=== PATIENT | female | born 1980 | race Caucasian/White ===

== ENCOUNTER → 2018-09-25 08:19 | Outpatient (CLI) | payer OTHER, SELFPAY ==
--- NOTE | 2018-09-25 08:30 | US_ITS ---
STUDY: ABDOMINAL ULTRASOUND - RIGHT UPPER QUADRANT REASON FOR VISIT: Female, 38 years old. Elevated liver function tests. TECHNIQUE: Ultrasound evaluation of the right upper quadrant was performed with real-time and static wright-scale imaging. TECHNICAL QUALITY: Adequate. COMPARISON: None. FINDINGS: Liver: The liver measures 16.6 cm. There is normal echogenicity of the liver. The bile ducts are within normal limits. There is hepatic color flow. The direction of portal flow is hepatopetal. There is no demonstrated mass lesion. Gallbladder: Normal distended gallbladder. The gallbladder wall measures 2.7 mm. There is a negative sonographic Chery's sign. There is no pericholecystic fluid. There are no gallstones. Common Bile Duct (C.B.D.): The common bile duct measures 3.7 mm. Pancreas: Normal size of the head, body and tail of the pancreas. There is normal echogenicity of the pancreas. There is no demonstrated pancreatic mass or cyst. Right Kidney: Normal size of the right kidney. The right kidney measures 11.7 cm x 4.7 cm x 4.5 cm. Normal renal cortex. The right cortex measures 2.0 cm. There is no demonstrated renal mass or cyst. There is no right hydronephrosis. US/Liver IMPRESSION: Normal right upper quadrant ultrasound examination. Electronically Signed: Cruz Hu MD at 14:52 EST Tel [phone], Service support ,
--- NOTE | 2018-09-25 09:00 | ECHOD_ITS ---
Reason For Study: ABN EKG Procedure This was a 2D Doppler, Color Flow transthoracic echocardiogram. The exam was of adequate technical quality. Exam performed in department. Left Ventricle Normal LV size. Left ventricular systolic function is normal. The estimated ejection fraction is 55 %. No evidence for diastolic dysfunction. No regional wall motion abnormalities noted. Right Ventricle Normal RV size. Normal systolic function. Atria Normal left atrium. Normal right atrium. Hypermobile atrial septum. No doppler evidence for ASD. Mitral Valve There is no mitral annular calcification. Mild diffuse mitral valve thickening. Trivial mitral valve insufficiency. Tricuspid Valve Normal tricuspid valve. Mild to moderate (1-2+) tricuspid valve insufficiency. Right ventricular systolic pressure estimated to be 22 mmHg. Aortic Valve Trisinus/trileaflet aortic valve. Mild diffuse aortic valve thickening. Pulmonic Valve The pulmonic valve is not well visualized. Great Vessels Normal sized aortic root. Pericardium/Pleural No pericardial effusion. MMode/2D Measurements & Calculations LVIDd: 4.9 cm IVSd: 0.80 cm Ao root diam: 3.3 cm LVIDs: 3.3 cm LVPWd: 0.82 cm RVDd: 4.3 cm FS: 31.6 % LAV(MOD-bp): 46.3 ml LVAd ap4: 32.2 cm2 SV(MOD-sp4): 58.4 ml LAV(MOD-bp) Indexed: 24.2 ml/m2 EDV(MOD-sp4): 101.7 ml LAV(MOD-sp2): 46.8 ml EDV(sp4-el): 106.2 ml LAV(MOD-sp4): 43.1 ml LVAs ap4: 18.6 cm2 ESV(MOD-sp4): 43.3 ml ESV(sp4-el): 44.5 ml EF(MOD-sp4): 57.4 % EF(sp4-el): 58.1 % SV(sp4-el): 61.7 ml LA A4 area: 17.4 cm2 LA dimension(2D): 3.2 cm RA A4 area: 16.2 cm2 Time Measurements MV dec time: 0.32 sec Doppler Measurements & Calculations MV E max nicholas: 52.2 cm/sec Lat Peak E' Nicholas: 10.7 cm/sec Med Peak E' Nicholas: 8.5 cm/sec MV A max nicholas: 38.9 cm/sec E/E' lat: 4.9 E/E' med: 6.2 MV E/A: 1.3 Ao V2 max: 122.0 cm/sec LV V1 max: 91.8 cm/sec PA V2 max: 88.4 cm/sec Ao max P.0 mmHg LV V1 max P.4 mmHg TR max nicholas: 214.3 cm/sec TR max P.5 mmHg Interpretation Summary Left ventricular systolic function is normal. The estimated ejection fraction is 55 %. Mild diffuse mitral valve thickening. Trivial mitral valve insufficiency. Mild to moderate (1-2+) tricuspid valve insufficiency. Mild diffuse aortic valve thickening. Right ventricular systolic pressure estimated to be 22 mmHg. No evidence for diastolic dysfunction. Ordering Physician: Andi Blake Referring Physician: ANDI BLAKE Performed By: Carla Rouse, RDCS, RVT
--- OUTSIDE RECORDS SUMMARY | 2018-11-11 06:25 | XMS RPT_ITS | Continuity of Care Document ---
:1980 Author Organization [facility] Address [facility]7 [facility] [address] [place] [address] Phone Care Team Providers Name Role Phone Diego FARHEENVivien Unavailable Gisselle Short Unavailable Unavailable Unavailable Unavailable Problems Name Dates Details Abdominal pain, acute, right upper quadrant (789.01) Comments: ? 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) Comments: CT from [facility] shows 8mm left sided calculi, but has pain on rt Status: Active Cough (R05, 786.2) Status: Active Elevated liver enzymes (R74.8, 790.5) Status: Active Fatigue (R53.83, 780.79) Status: Active Flu-like symptoms (R68.89, 780.99) Status: Active Influenza vaccination declined (Renamed from Refused influenza vaccine) (Z28.21, V64.06) Status: Active Lack of sexual desire (F52.0, 302.71) Status: Active Nonsmoker (Z78.9, V49.89) Status: Active Other specified conditions associated with female genital organs and menstrual cycle (N94.89, 629.89) Status: Active Shingles (B02.9, 053.9) Comments: calls and reports she was seen at a [facility] and started on antiviral. Aware to cover lesions and is spread via touch (not airborne) and aware to come to office if not improving. Status: Active Sinusitis, acute (J01.90, 461.9) Status: Active Sleep disorder (G47.9, 780.50) Comments: ? narcolepsy or other Status: Active SOB (shortness of breath) on exertion (R06.02, 786.05) Status: Active Vitamin D deficiency (E55.9, 268.9) Status: Active Medications Name Dates Details AUGMENTIN, 875-125MG (Oral Tablet) 1 (one) Tablet bid for 14 days Quantity: 28 {Tablet} Refills: 0 Ordered:04-Jan-2016 Diego WIRE ROPE SLING MAKER, Vivien Castellanos CNP, Vivien Mcneill Start : 04-Jan-2016 End : 18-Jan-2016 Inactive AVELOX, 400MG (Oral Tablet) 1 Tablet daily for 10 days Refills: 0 Ordered:03-Jun-2013 Diego WIRE ROPE SLING MAKER, Vivien Castellanos WIRE ROPE SLING MAKER, Vivien Mcneill Start : 24-May-2013 End : 03-Jun-2013 Inactive LEVAQUIN, 500MG (Oral Tablet) 1 (one) Tablet daily for 10 days Quantity: 10 {Tablet} Refills: 0 Ordered:25-Nov-2013 Diego ZHONG Vivien Castellanos CNP, Vivien Mcneill Start : 25-Nov-2013 End : 05-Dec-2013 Inactive LINZESS, 145 MCG (LINACLOTIDE) CAPSULES, 145 MCGMCG (Oral Capsule) (Free Text) 1 Capsule qd 1/2 hour prior to eating and eat lowfat for 0 days Quantity: 30 {Capsule} Refills: 0 Ordered:24-May-2013 Ava Orlando LPN Start : 16-Apr-2013 End : 24-May-2013 Inactive AMITIZA, 24MCG (Oral Capsule) 1 Capsule daily for 0 days Quantity: 30 {Capsule} Refills: 0 Ordered:09-Sep-2013 Fast DO, Ivelisse A Start : 09-Sep-2013 End : 09-Sep-2013 Discontinued Comments:per Gi doctor Cheratussin AC 100-10 MG/5ML Oral Solution 1-2 Teaspoon qhs prn for 0 days Quantity: 6 {Ounce} Refills: 0 Ordered:31-Aug-2018 Gisselle Short Start : 04-Jan-2016 End : 31-Aug-2018 Discontinued LACTULOSE, 20GM/30ML (Oral Solution) 1 Solution Solution 30mg tid prn constipation for 0 days Quantity: 500 ml Refills: 1 Ordered:04-Jan-2016 Slarb HYDROGEOLOGIST, Klaudia Start : 09-Sep-2013 End : 04-Jan-2016 Discontinued LINZESS, 290 MCG (LINACLOTIDE) CAPSULES, 290 MCGMCG (Oral Capsule) (Free Text) 1 Capsule qd for 0 days Quantity: 30 {Capsule} Refills: 3 Ordered:09-Sep-2013 Fast , Ivelisse A Start : 09-Sep-2013 End : 09-Sep-2013 Discontinued MULTIVITAMIN (Oral Liquid) 1 qd End : 04-Jan-2016 Discontinued ProAir HFA 108 (90 Base) MCG/ACT Inhalation Aerosol Solution 2 (two) Aerosol Soln puffs qid prn for 0 days Quantity: 1 {Inhaler} Refills: 1 Ordered:31-Aug-2018 Gisselle Short Start : 04-Jan-2016 End : 31-Aug-2018 Discontinued SPRINTEC 28, 0.25-35MG-MCG (Oral Tablet) qd (0.25-35 MG-MCG) End : 14-May-2014 Discontinued Allergies and Adverse Reactions Name Dates Details No Known Allergies (Allergy) Onset: 16-Apr-2013 Status: Active No Known Drug Allergies (Allergy) Onset: 16-Apr-2013 Status: Active Past Medical History Name Dates Details Constipation (K59.00, 564.00) Status: Resolved as of 14-May-2014 Cough (R05, 786.2) Status: Resolved as of 14-May-2014 Fever (R50.9, 780.60) Status: Resolved as of 14-May-2014 No Known Problems 09-Sep-2013 Status: Inactive Pneumonia (J18.9, 486) Status: Resolved as of 14-May-2014 Family History Unknown Family Member Name Dates Details Brother 2 Comments: 2 brothers living and healthy Status: Active Father Comments: living and has high chol Status: Active Mother Comments: living and healthy Status: Active Social History Name Dates Details Exercise History: Exercises regularly. Comments: 6 days a week Status: Active No Caffeine Use Status: Active No Drug Use Status: Active Non Drinker/No Alcohol Use Status: Active Pets/Animals: Dog. Status: Active Tobacco use: Never smoker. Status: Active Smoking Status Name Dates Details Never smoker Vital Signs Date Test Result Details :59 Temperature 97.9 f Comments: Method: Temporal Pulse 75 /min Comments: Pattern: Regular Respiration Rate 16 /min Comments: Pattern: Unlabored O2 SAT 96 % Comments: Room air BP Systolic 112 mm[Hg] Comments: Patient Position: Sitting; Cuff Location: Left Arm; Cuff Size: Standard BP Diastolic 62 mm[Hg] Comments: Patient Position: Sitting; Cuff Location: Left Arm; Cuff Size: Standard Weight 158.3125 lb Height 69.75 in Body Mass Index Calculated 22.88 kg/m2 Body Surface Area Calculated 1.89 m2 :32 Temperature 98.2 f Comments: Method: Temporal Pulse 68 /min Comments: Pattern: Regular Respiration Rate 16 /min Comments: Pattern: Unlabored O2 SAT 95 % Comments: Room air BP Systolic 108 mm[Hg] Comments: Patient Position: Sitting; Cuff Location: Left Arm; Cuff Size: Standard BP Diastolic 60 mm[Hg] Comments: Patient Position: Sitting; Cuff Location: Left Arm; Cuff Size: Standard Weight 158.3125 lb Height 69.75 in Body Mass Index Calculated 22.88 kg/m2 Body Surface Area Calculated 1.89 m2 :06 Temperature 98 f Pulse 84 /min Comments: Pattern: Regular Respiration Rate 18 /min Comments: Pattern: Unlabored O2 SAT 99 % Comments: Room air BP Systolic 102 mm[Hg] Comments: Patient Position: Sitting; Cuff Location: Left Arm; Cuff Size: Standard BP Diastolic 62 mm[Hg] Comments: Patient Position: Sitting; Cuff Location: Left Arm; Cuff Size: Standard Weight 156 lb Height 69.75 in Body Mass Index Calculated 22.54 kg/m2 Body Surface Area Calculated 1.87 m2 :11 Temperature 97.3 f Pulse 64 /min Comments: Pattern: Regular Respiration Rate 16 /min Comments: Pattern: Unlabored BP Systolic 90 mm[Hg] Comments: Patient Position: Sitting; Cuff Location: Left Arm; Cuff Size: Large BP Diastolic 64 mm[Hg] Comments: Patient Position: Sitting; Cuff Location: Left Arm; Cuff Size: Large Weight 154 lb Height 69.75 in Body Mass Index Calculated 22.26 kg/m2 Body Surface Area Calculated 1.86 m2 :01 Temperature 101.8 f Comments: Method: Oral Pulse 110 /min Comments: Pattern: Regular Respiration Rate 18 /min O2 SAT 93 % Comments: Room air BP Systolic 110 mm[Hg] Comments: Patient Position: Sitting; Cuff Location: Left Arm; Cuff Size: Standard BP Diastolic 68 mm[Hg] Comments: Patient Position: Sitting; Cuff Location: Left Arm; Cuff Size: Standard Weight 157 lb Height 69.75 in Body Mass Index Calculated 22.69 kg/m2 Body Surface Area Calculated 1.88 m2 :12 Temperature 97.9 f Pulse 80 /min Comments: Pattern: Regular Respiration Rate 16 /min Comments: Pattern: Unlabored BP Systolic 102 mm[Hg] Comments: Patient Position: Sitting; Cuff Location: Left Arm; Cuff Size: Standard BP Diastolic 68 mm[Hg] Comments: Patient Position: Sitting; Cuff Location: Left Arm; Cuff Size: Standard Weight 157 lb Height 69.75 in Body Mass Index Calculated 22.69 kg/m2 Body Surface Area Calculated 1.88 m2 :13 Temperature 97.6 f Comments: Method: Temporal Pulse 74 /min Comments: Pattern: Regular Respiration Rate 16 /min Comments: Pattern: Unlabored O2 SAT 99 % Comments: Room air BP Systolic 120 mm[Hg] Comments: Patient Position: Sitting; Cuff Location: Left Arm; Cuff Size: Standard BP Diastolic 70 mm[Hg] Comments: Patient Position: Sitting; Cuff Location: Left Arm; Cuff Size: Standard Weight 146 lb :59 Temperature 97.8 f Comments: Method: Oral Pulse 76 /min Comments: Pattern: Regular Respiration Rate 18 /min O2 SAT 98 % Comments: Room air BP Systolic 100 mm[Hg] Comments: Patient Position: Sitting; Cuff Location: Left Arm; Cuff Size: Standard BP Diastolic 66 mm[Hg] Comments: Patient Position: Sitting; Cuff Location: Left Arm; Cuff Size: Standard Weight 146 lb :00 Pulse 64 /min Comments: Pattern: Regular Respiration Rate 16 /min Comments: Pattern: Unlabored O2 SAT 98 % Comments: Room air BP Systolic 96 mm[Hg] Comments: Patient Position: Sitting; Cuff Location: Left Arm; Cuff Size: Standard BP Diastolic 60 mm[Hg] Comments: Patient Position: Sitting; Cuff Location: Left Arm; Cuff Size: Standard Weight 146 lb Results Date Description Value Details 00-Hvr-400320:22 CALCIFIDIOL (51830) VIT D 25 Comments: PATIENT NOT FASTINGPERFORMED BY: [facility] Mwpsio6345 [facility] [place] [id number] Vitamin D, 25-Hydroxy 23.8 ng/mL (Abnormal) Range: 30.0-100.0 Comments: Vitamin D deficiency has been defined by the Media ofMad[place] Healthcine and an Endocrine Society practice guideline as alevel of serum 25-OH vitamin D less than 20 ng/mL (1,2).The Endocrine Society went on to further define vitamin Dinsufficiency as a level between 21 and 29 ng/mL (2).1. IOM (Media of Medicine). 2010. Dietary reference intakes for calcium and D. [place]: The National AcademRoad [employer] Press.2. Teo MF, Michelle MIRANDA, Michela CRUZ, et al. Evaluation, treatment, and prevention of vitamin D deficiency: an Endocrine Society clinical practice guideline. JCEM. 2010; 96(7):1911-30. 09-Pye-455734:22 Folate (38475) Comments: PATIENT NOT FASTINGPERFORMED BY: [facility] Evimii3202 [facility] [place] [id number] Folate (Folic Acid), Serum >20.0 ng/mL (Normal) Comments: A serum folate concentration of less than 3.1 ng/mL isconsidered to represent clinical deficiency. 45-Nvw-583339:22 VITAMIN B-12 (CYANOCOBALAMIN) Comments: PATIENT NOT FASTINGPERFORMED BY: [facility] Anranh6508 [facility] [place] [id number] (03885) Vitamin B12 842 pg/mL (Normal) Range: 232-1245 28-Bpu-403505:22 TSH (84338) Comments: PATIENT NOT FASTINGPERFORMED BY: [facility] Hvnnqg5860 [facility] [place] [id number] TSH 1.030 {uIU/mL} (Normal) Range: 0.450-4.500 29-Xvv-597130:22 SED RATE ERYTHROCYTE (05205) Comments: PATIENT NOT FASTINGPERFORMED BY: [facility] Gwmovn9906 [facility] [id number] Sedimentation Rate-Westergren 2 mm/h (Normal) Range: 0-32 86-Cil-427053:22 RHEUMATOID FACTOR-QUANT (11190) Comments: PATIENT NOT FASTINGPERFORMED BY: [facility] [id number] RA Latex Turbid. <10.0 {IU/mL} (Normal) Range: 0.0-13.9 83-Wul-516322:22 METABOLIC PANEL, COMPREHENSIVE Comments: PATIENT NOT FASTINGPERFORMED BY: [facility] [id number] (51177) ALT (SGPT) 36 [iU]/L (Abnormal) Range: 0-32 AST (SGOT) 45 [iU]/L (Abnormal) Range: 0-40 Alkaline Phosphatase 66 [iU]/L (Normal) Range: 39-117 Bilirubin, Total 0.3 mg/dL (Normal) Range: 0.0-1.2 A/G Ratio 2.1 (Normal) Range: 1.2-2.2 Globulin, Total 2.4 g/dL (Normal) Range: 1.5-4.5 Albumin 5.0 g/dL (Normal) Range: 3.5-5.5 Protein, Total 7.4 g/dL (Normal) Range: 6.0-8.5 Calcium 9.9 mg/dL (Normal) Range: 8.7-10.2 Carbon Dioxide, Total 22 mmol/L (Normal) Range: 20-29 Chloride 100 mmol/L (Normal) Range: 96-106 Potassium 4.4 mmol/L (Normal) Range: 3.5-5.2 Sodium 139 mmol/L (Normal) Range: 134-144 BUN/Creatinine Ratio 25 (Abnormal) Range: 9-23 eGFR If Africn Am 88 mL/min/1.73 (Normal) eGFR If NonAfricn Am 76 mL/min/1.73 (Normal) Creatinine 0.95 mg/dL (Normal) Range: 0.57-1.00 BUN 24 mg/dL (Abnormal) Range: 6-20 Glucose 83 mg/dL (Normal) Range: 65-99 14-Iur-034589:22 C-REACTIVE PROTEIN (78722) Comments: PATIENT NOT FASTINGPERFORMED BY: [facility] [id number] C-Reactive Protein, Quant <0.3 mg/L (Normal) Range: 0.0-4.9 77-Ruz-493912:22 CBC (AUTO) (25051) Comments: PATIENT NOT FASTINGPERFORMED BY: [place] [id number] [facility] [id number] Platelets 252 {x10E3/uL} (Normal) Range: 150-379 RDW 12.5 % (Normal) Range: 12.3-15.4 MCHC 33.0 g/dL (Normal) Range: 31.5-35.7 MCH 30.7 pg (Normal) Range: 26.6-33.0 MCV 93 fL (Normal) Range: 79-97 Hematocrit 43.9 % (Normal) Range: 34.0-46.6 Hemoglobin 14.5 g/dL (Normal) Range: 11.1-15.9 RBC 4.73 {x10E6/uL} (Normal) Range: 3.77-5.28 WBC 7.7 {x10E3/uL} (Normal) Range: 3.4-10.8 22-Dkc-246158:22 HARMONY (ANTINUCLEAR ANTIBODY) Comments: PATIENT NOT FASTINGPERFORMED BY: [place] [id number] [facility] [id number] (50837) HARMONY Direct Negative (Normal) 05-Lvc-141272:00 Influenza A&B Viral Comments: PATIENT NOT FASTINGPERFORMED BY: [address] [id number] Information: SRC:NASALS [id number] Culture (33050) Viral Culture,Rapid,Influenza FLUABN (Normal) Comments: Negative:No Influenza A or B detected. 73-Feo-10428:06 Rapid Flu (25559 x 2) Influenza A Ag Negative a/b (Normal) 81-Lcq-82950:08 Microscopic Examination Comments: PATIENT WAS FASTINGPERFORMED BY: [place] 0158670 [facility] [id number] BY: [place] [id number] Bacteria Few (Normal) Mucus Threads Present (Normal) Epithelial Cells (non renal) 0-10 {/hpf} (Normal) Range: 0 - 10 RBC 0-2 {/hpf} (Normal) Range: 0 - 2 WBC 0-5 {/hpf} (Normal) Range: 0 - 5 :08 T4, FREE (THYROXINE) Comments: PATIENT WAS FASTINGPERFORMED BY: [facility] [id number] BY: [address] [id number] (29158) T4,Free(Direct) 1.23 ng/dL (Normal) Range: 0.82-1.77 :08 T3, FREE (TRIDOTHYRONINE) Comments: PATIENT WAS FASTINGPERFORMED BY: [address] [id number] BY: [place] [id number] (32205) Triiodothyronine,Free,Serum 2.9 pg/mL (Normal) Range: 2.0-4.4 :08 TESTOSTERONE FREE (94459) Comments: PATIENT WAS FASTINGPERFORMED BY: [place] 0477170 [facility] [id number] BY: [address] [id number] Free Testosterone(Direct) 0.2 pg/mL (Normal) Range: 0.0-2.2 :08 PROLACTIN (41531) Comments: PATIENT WAS FASTINGPERFORMED BY: [address] [id number] BY: [address] [id number] Prolactin 5.7 ng/mL (Normal) Range: 4.8-23.3 :08 EBV Panel (18310) Comments: PATIENT WAS FASTINGPERFORMED BY: [facility]6370 [facility] [id number] BY: [address] [id number] Interpretation: [facility] (Normal) Comments: EBV Interpretation Chart . Interpretation EBV-IgM VCA-IgG EBNA-IgG EA(D)-IgG . EBV Seronegative - - - - Early Phase + - - - Acute Primary + + - +or- Infection Convalescence/Past - + + +or- Infection Reactivated +or- + + + Infection + Antibody Present - Antibody Absent EBV Nuclear Antigen Ab, IgG 248.0 U/mL (Abnormal) Range: 0.0-17.9 Comments: Negative <18.0 Equivocal 18.0 - 21.9 Positive >21.9 EBV Ab VCA, IgG >600.0 U/mL (Abnormal) Range: 0.0-17.9 Comments: Negative <18.0 Equivocal 18.0 - 21.9 Positive >21.9 EBV Ab VCA, IgM <36.0 U/mL (Normal) Range: 0.0-35.9 Comments: Negative <36.0 Equivocal 36.0 - 43.9 Positive >43.9 EBV Early Antigen Ab, IgG 52.6 U/mL (Abnormal) Range: 0.0-8.9 Comments: Hepatitis A, Hepatitis C and HIV antibodies may cross-reactwith this assay. Negative < 9.0 Equivoc al 9.0 - 10.9 Positive >10.9 41-Hbq-94188:08 C-REACTIVE PROTEIN (49062) Comments: PATIENT WAS FASTINGPERFORMED BY: [place] 0477170 [facility] [id number] BY: [address] [id number] C-Reactive Protein, Quant 0.4 mg/L (Normal) Range: 0.0-4.9 :08 SED RATE ERYTHROCYTE Comments: PATIENT WAS FASTINGPERFORMED BY: [place] 0477170 [facility] [id number] BY: [address] [id number] (79279) Sedimentation Rate-Westergren 2 mm/h (Normal) Range: 0-32 :08 Vitamin D Hydroxy Comments: PATIENT WAS FASTINGPERFORMED BY: [facility] Oxuish1534 [facility] [id number] BY: Dan[place] d/b/a [employer] [id number] (86058) Vitamin D, 25-Hydroxy 40.2 ng/mL (Normal) Range: 30.0-100.0 Comments: Vitamin D deficiency has been defined by the Media ofMedicine and an Endocrine Society practice guideline as alevel of serum 25-OH vitamin D less than 20 ng/mL (1,2).The Endocrine Society went on to further define vitamin Dinsufficiency as a level between 21 and 29 ng/mL (2).1. IOM (Media of Medicine). 2010. Dietary reference intakes for calcium and D. [place]: The National Academies Press.2. Teo MF, Michelle [place], Michela CRUZ, et al. Evaluation, treatment, and prevention of vitamin D deficiency: an Endocrine Society clinical practice guideline. JCEM. 2010; 96(7):1911-30. :08 VITAMIN B-12 (CYANOCOBALAMIN) Comments: PATIENT WAS FASTINGPERFORMED BY: [facility] Lbuhwq6827 [facility] [id number] BY: [place] d/b/a [employer] [id number] (44692) Vitamin B12 1969 pg/mL (Abnormal) Range: 211-946 :08 URINALYSIS, W/ MICRO Comments: PATIENT WAS FASTINGPERFORMED BY: [facility] Ojihjn0590 [facility] [id number] BY: [place] d/b/a [employer] [id number] (99060) Microscopic Examination See below: (Normal) Comments: Microscopic was indicated and was performed. Nitrite, Urine Negative (Normal) Urobilinogen,Semi-Qn 0.2 mg/dL (Normal) Range: 0.0-1.9 Bilirubin Negative (Normal) Occult Blood Negative (Normal) Ketones Negative (Normal) Glucose Negative (Normal) Protein Negative (Normal) WBC Esterase 1+ (Abnormal) Appearance Clear (Normal) Urine-Color Yellow (Normal) pH 6.5 (Normal) Range: 5.0-7.5 Specific [place] 1.022 (Normal) Range: 1.005-1.030 :08 TSH (14811) Comments: PATIENT WAS FASTINGPERFORMED BY: [place] [id number] [facility] [id number] BY: [place] d/b/a [employer] [id number] TSH 3.670 {uIU/mL} (Normal) Range: 0.450-4.500 :08 CBC WITH MANUAL DIFF Comments: PATIENT WAS FASTINGPERFORMED BY: [place] 0477170 [facility] [id number] BY: [place] d/b/a [employer] [id number] Inf ormation: [id number] (57840) Immature Grans (Abs) 0.0 {x10E3/uL} (Normal) Range: 0.0-0.1 Immature Granulocytes 0 % (Normal) Range: 0-2 Baso (Absolute) 0.0 {x10E3/uL} (Normal) Range: 0.0-0.2 Eos (Absolute) 0.1 {x10E3/uL} (Normal) Range: 0.0-0.4 Monocytes(Absolute) 0.3 {x10E3/uL} (Normal) Range: 0.1-0.9 Lymphs (Absolute) 2.0 {x10E3/uL} (Normal) Range: 0.7-3.1 Neutrophils (Absolute) 2.2 {x10E3/uL} (Normal) Range: 1.4-7.0 Basos 1 % (Normal) Range: 0-3 Eos 1 % (Normal) Range: 0-5 Monocytes 7 % (Normal) Range: 4-12 Lymphs 44 % (Normal) Range: 14-46 Neutrophils 47 % (Normal) Range: 40-74 Platelets 208 {x10E3/uL} (Normal) Range: 150-379 RDW 12.7 % (Normal) Range: 12.3-15.4 MCHC 34.0 g/dL (Normal) Range: 31.5-35.7 MCH 31.1 pg (Normal) Range: 26.6-33.0 MCV 91 fL (Normal) Range: 79-97 Hematocrit 44.7 % (Normal) Range: 34.0-46.6 Hemoglobin 15.2 g/dL (Normal) Range: 11.1-15.9 RBC 4.89 {x10E6/uL} (Normal) Range: 3.77-5.28 WBC 4.6 {x10E3/uL} (Normal) Range: 3.4-10.8 44-Cdn-99468:08 METABOLIC PANEL, Comments: PATIENT WAS FASTINGPERFORMED BY: [facility] Hqinnz1014 [facility] [id number] BY: BN [facility] Fdjwfpqwhg5973 [facility] [id number] COMPREHENSIVE (56749) ALT (SGPT) 57 [iU]/L (Abnormal) Range: 0-32 AST (SGOT) 41 [iU]/L (Abnormal) Range: 0-40 Alkaline Phosphatase, S 54 [iU]/L (Normal) Range: 39-117 Bilirubin, Total 0.5 mg/dL (Normal) Range: 0.0-1.2 A/G Ratio 1.8 (Normal) Range: 1.1-2.5 Globulin, Total 2.5 g/dL (Normal) Range: 1.5-4.5 Albumin, Serum 4.5 g/dL (Normal) Range: 3.5-5.5 Protein, Total, Serum 7.0 g/dL (Normal) Range: 6.0-8.5 Calcium, Serum 9.6 mg/dL (Normal) Range: 8.7-10.2 Carbon Dioxide, Total 25 mmol/L (Normal) Range: 18-29 Chloride, Serum 99 mmol/L (Normal) Range: 97-108 Potassium, Serum 4.7 mmol/L (Normal) Range: 3.5-5.2 Sodium, Serum 142 mmol/L (Normal) Range: 134-144 BUN/Creatinine Ratio 29 (Abnormal) Range: 8-20 eGFR If Africn Am 115 mL/min/1.73 (Normal) eGFR If NonAfricn Am 99 mL/min/1.73 (Normal) Creatinine, Serum 0.78 mg/dL (Normal) Range: 0.57-1.00 BUN 23 mg/dL (Abnormal) Range: 6-20 Glucose, Serum 83 mg/dL (Normal) Range: 65-99 66-Sbx-781502:57 PELVIC (NON ) Radiology Report See Note Comments: PROCEDURE: ULTRASOUND OF THE FEMALE PELVIS - COMPLETE REASON FOR EXAM: Female, 33 years old. LMP: 05/20/13. Pelvic pain TECHNIQUE: Transabdominal and Transvaginal TECHNICAL QUALITY: Adequate. C (Normal) OMPARISON: None. FINDINGS:The uterus is anteverted and just to the right of midline position. Theuterus measures 7.3 x 6.7 x 4.7 cm. Normal uterine cervix. Theend ometrium measures 2.0 mm in thickness, and is hyperechoic. There isnodemonstrated endometrial mass. There is no demonstrated myometrial mass.I.U.D. - No The right ovary is non-visualized. The left ova ry is non-visualized. No suspicious adnexal mass is identified. There is no fluid in the cul-de-sac. The distended urinary bladder had a volume of 902 ml at the time of theexam. IMPRESSION:Neither ovary was visualized due to overlying bowel. Signed:Lucia Saldana M.D.June 06, 2013 at 9:37:54 PM [phone] Signed SN/SN If you are the referring physi flora and would like to consult with theradiologist who provided this interpretation, please contact Lucia Saldana M.D. at . If this radiologist is unavailable, you will bedirected to another r adiologist to assist. If you are a patient with a question regarding this report, pleasecontactyour referring physician directly. Professional Interpretation Provided By: [employer], Phone , These documents contain legally protected and confidential healthinformation intended only for the use of the individual or entity namedabove. If you are not the intended recipient, you are hereby notifiedthatany disclosure, copying, distribution, or other use of these documents isstrictly prohibited. If you have received this information in error,pleasenotify the sender immediatel y and arrange for the return or destructionofthese documents. Dictated on 06/06/132136 by Ritika Saldana AnnTranscribed on 06/06/132138 by ITS IMPORTSign by Ritika Saldana on 06/06/132139 Sign by: Ritika Saldana 01-Brd-79760:00 TRANSVAGINAL NON- Radiology Report See Note Comments: PROCEDURE: ULTRASOUND OF THE FEMALE PELVIS - COMPLETE REASON FOR EXAM: Female, 33 years old. LMP: 05/20/13. Pelvic pain TECHNIQUE: Transabdominal and Transvaginal TECHNICAL QUALITY: Adequate. C (Normal) OMPARISON: None. FINDINGS:The uterus is anteverted and just to the right of midline position. Theuterus measures 7.3 x 6.7 x 4.7 cm. Normal uterine cervix. Theend ometrium measures 2.0 mm in thickness, and is hyperechoic. There isnodemonstrated endometrial mass. There is no demonstrated myometrial mass.I.U.D. - No The right ovary is non-visualized. The left ova ry is non-visualized. No suspicious adnexal mass is identified. There is no fluid in the cul-de-sac. The distended urinary bladder had a volume of 902 ml at the time of theexam. IMPRESSION:Neither ovary was visualized due to overlying bowel. Signed:Lucia Saldana M.D.June 06, 2013 at 9:37:54 PM [phone] Signed SN/SN If you are the referring physi flora and would like to consult with theradiologist who provided this interpretation, please contact Lucia Saldana M.D. at . If this radiologist is unavailable, you will bedirected to another r adiologist to assist. If you are a patient with a question regarding this report, pleasecontactyour referring physician directly. Professional Interpretation Provided By: [employer], Phone [phone], These documents contain legally protected and confidential healthinformation intended only for the use of the individual or entity namedabove. If you are not the intended recipient, you are hereby notifiedthatany disclosure, copying, distribution, or other use of these documents isstrictly prohibited. If you have received this information in error,pleasenotify the sender immediatel y and arrange for the return or destructionofthese documents. Dictated on 06/06/132136 by Ritika Saldana AnnTranscribed on 06/06/132138 by ITS IMPORTSign by Ritika Saldana on 06/06/132139 Sign by: Ritika Saldana Susanna 40-Lwv-[id number]:48 CHEST PA AND LATERAL Radiology Report See Note Comments: STUDY: X-RAY CHEST REASON FOR EXAM: Female, 33 years old. Pneumonia. TECHNIQUE: PA and lateral views of the chest. COMPARISON: None. FINDINGS: Hyp erinflation. (Normal) There is no demonstrated pleural abnormality. Normal size heart. Normal mediastinum and cely. Normal visualizedpulmonary arteries. Normal visualized aortic arch and descendingthoracicaorta. Normal visualized thoracic spine. Normal visualized ribs, clavicles, andshoulders. There is no demonstrated abnormality of the visualized soft tissuestructures of the upper abdomen. IMPRESSION:Hyperinflation. Signed:Cruz Hu M.D.June 04, 2013 at 3:36:49 PM [phone] Signed GP/GP If you are the referring physician and would like to consult with theradiologist who provided this interpretation, please contact Osmani Flores at [phone]. If this radiologist is unavailable, youwill be directed to another radiologist to assist. If you are a patient with a question regarding this report, pleasecontactyour referring physician directly. Professional Interpretation Provided By: [employer], Phone , Thes e documents contain legally protected and confidential healthinformation intended only for the use of the individual or entity namedabove. If you are not the intended recipient, you are hereby notifiedt hatany disclosure, copying, distribution, or other use of these documents isstrictly prohibited. If you have received this information in error,pleasenotify the sender immediately and arrange for the re turn or destructionofthese documents. Dictated on 06/04/131535 by Christina Hu MDranscribed on 06/04/131537 by ITS IMPORTSign by Cruz Hu MD on 06/04/131538 Sign by: Cruz Hu MD 03-Vqw-89551:01 CBCMD ANC 5.9 3/uL (Normal) Range: 2.0-7.7 IG% 0.10 % (Normal) Range: 0.0-0.9 Comments: IG% - Immature Granulocytes (promyelocytes, myelocytes,metamyelocytes) >1.0% indicates that a LEFT SHIFT ispresent. B% 0.7 % (Normal) Range: 0-1 E% 0.8 % (Normal) Range: 0-5 M% 7.3 % (Normal) Range: 0-10 L% 21.8 % (Normal) Range: 19-41 N% 69.3 % (Normal) Range: 47-70 MPV 10.9 fL (Normal) Range: 6.2-12.0 PLT 273 K/mm3 (Normal) Range: 150-450 RDWSD 42.4 fL (Normal) Range: 35.1-43.9 MCHC 33.8 g/dL (Normal) Range: 32-36 RDWCV 12.9 % (Normal) Range: 11.6-14.6 MCH 31.2 pg (Normal) Range: 27.0-32.0 MCV 92.1 fL (Normal) Range: 81-99 HCT 40.8 % (Normal) Range: 37-47 HGB 13.8 g/dL (Normal) Range: 12.0-15.0 RBC 4.43 {M/mm3} (Normal) Range: 4.2-5.4 WBC 8.5 {k/mm3} (Normal) Range: 4.4-11.0 :01 DDIMQ 0.35 {FEUug/mL} (Normal) Range: 0.22-0.48 Comments: NORMAL D-Dimer level indicates no DVT or PE. :01 PREGS tPREGS NEGATIVE {Negative} (Normal) Range: 0-9 Nonpreg 8-Mti-992428:19 CULTURE, SPUTUM ([id number]) Comments: PATIENT NOT FASTINGPERFORMED BY: [facility] Wycans8406 [facility] hospital [id number] Information: SRC:[facility] [id number] Result 1 RRF (Normal) Comments: Routine respiratory mila Lower Respiratory Culture Final report (Normal) :28 Microscopic Examination Comments: PATIENT NOT FASTINGPERFORMED BY: [employer] [facility] [id number] [facility] [place] [id number] Bacteria Few (Normal) Mucus Threads Present (Normal) Epithelial Cells (non renal) 0-10 {/hpf} (Normal) Range: 0 - 10 RBC 0-3 {/hpf} (Normal) Range: 0 - 3 WBC 0-5 {/hpf} (Normal) Range: 0 - 5 :28 Vitamin D Hydroxy (75990) Comments: PATIENT NOT FASTINGPERFORMED BY: [employer] [facility] [id number] [place]opicmarksDublin [place] [id number] Vitamin D, 25-Hydroxy 39.8 ng/mL (Normal) Range: 30.0-100.0 Comments: Vitamin D deficiency has been defined by the Media ofMedicine and an Endocrine Society practice guideline as alevel of serum 25-OH vitamin D less than 20 ng/mL (1,2).The Endocrine Society went on to further define vitamin Dinsufficiency as a level between 21 and 29 ng/mL (2).1. IOM (Media of Medicine). 2010. Dietary reference intakes for calcium and D. [place]: The National Academies Press.2. Teo MF, Michelle MIRANDA, Michela CRUZ, et al. Evaluation, treatment, and prevention of vitamin D deficiency: an Endocrine Society clinical practice guideline. JCEM. 2010; 96(7):1911-30. :28 VITAMIN B-12 (CYANOCOBALAMIN) Comments: PATIENT NOT FASTINGPERFORMED BY: Promon70 [facility] [id number] ([id number]) Vitamin B12 1334 pg/mL (Abnormal) Range: 211-946 :28 EBV Panel (46875) Comments: PATIENT NOT FASTINGPERFORMED BY: Ecinity6370 [facility] [id number] Interpretation: SPRCS (Normal) Comments: EBV Interpretation Chart . Interpretation VCA-IgM EA-IgG VCA-IgG NA-ABS . Susceptible - - - - Acute Infection + +or- +or- - Convalescent Phase +or- +or- + + Chronic or Reactivated - + + +or- Old Infection - - +or- + + Antibody Present - Antibody Absent EBV Ab VCA, IgG >8.0 {AI} (Abnormal) Range: 0.0-0.8 Comments: Negative <0.9 Equivocal 0.9 - 1.0 Positive >1.0 EBV Nuclear Antigen Ab, IgG >8.0 {AI} (Abnormal) Range: 0.0-0.8 Comments: Negative <0.9 Equivocal 0.9 - 1.0 Positive >1.0 EBV Early Antigen Ab, IgG <0.2 {AI} (Normal) Range: 0.0-0.8 Comments: Negative <0.9 Equivocal 0.9 - 1.0 Positive >1.0 EBV Ab VCA, IgM <0.2 {AI} (Normal) Range: 0.0-0.8 Comments: Negative <0.9 Equivocal 0.9 - 1.0 Positive >1.0 :28 URINALYSIS, W/ MICRO ([id number]) Comments: PATIENT NOT FASTINGPERFORMED BY: [facility]6[address] [facility] [id number] Microscopic Examination See below: (Normal) Microscopic Examination MICRON (Normal) Comments: Microscopic follows if indicated. Nitrite, Urine Negative (Normal) Urobilinogen,Semi-Qn 0.2 mg/dL (Normal) Range: 0.0-1.9 Bilirubin Negative (Normal) Occult Blood Negative (Normal) Ketones Negative (Normal) Glucose Negative (Normal) Protein Negative (Normal) WBC Esterase Negative (Normal) Appearance Cloudy (Abnormal) Urine-Color Yellow (Normal) pH 6.0 (Normal) Range: 5.0-7.5 Specific [place] 1.030 (Normal) Range: 1.005-1.030 :28 TSH ([id number]) Comments: PATIENT NOT FASTINGPERFORMED BY: [facility]6[address] [facility] [id number] TSH 1.890 {uIU/mL} (Normal) Range: 0.450-4.500 :28 CBC WITH MANUAL DIFF Comments: PATIENT NOT FASTINGPERFORMED BY: [facility]6370 [facility] [id number] Information: ADD [id number] AND DRAW FEE [phone] PLEASE FAX RESULTS TO (40187) Immature Grans (Abs) 0.0 {x10E3/uL} (Normal) Range: 0.0-0.1 Immature Granulocytes 0 % (Normal) Range: 0-2 Baso (Absolute) 0.0 {x10E3/uL} (Normal) Range: 0.0-0.2 Eos (Absolute) 0.1 {x10E3/uL} (Normal) Range: 0.0-0.4 Monocytes(Absolute) 0.4 {x10E3/uL} (Normal) Range: 0.1-1.0 Lymphs (Absolute) 1.9 {x10E3/uL} (Normal) Range: 0.7-4.5 Neutrophils (Absolute) 3.8 {x10E3/uL} (Normal) Range: 1.8-7.8 Basos 1 % (Normal) Range: 0-3 Eos 1 % (Normal) Range: 0-7 Monocytes 6 % (Normal) Range: 4-13 Lymphs 31 % (Normal) Range: 14-46 Neutrophils 61 % (Normal) Range: 40-74 Platelets 207 {x10E3/uL} (Normal) Range: 140-415 RDW 12.4 % (Normal) Range: 12.3-15.4 MCHC 32.8 g/dL (Normal) Range: 31.5-35.7 MCH 30.7 pg (Normal) Range: 26.6-33.0 MCV 94 fL (Normal) Range: 79-97 Hematocrit 41.2 % (Normal) Range: 34.0-46.6 Hemoglobin 13.5 g/dL (Normal) Range: 11.1-15.9 RBC 4.40 {x10E6/uL} (Normal) Range: 3.77-5.28 WBC 6.2 {x10E3/uL} (Normal) Range: 4.0-10.5 32-Woa-58992:28 METABOLIC PANEL, COMPREHENSIVE Comments: PATIENT NOT FASTINGPERFORMED BY: [facility]Saint [facility] CenterXaicoj2813 [facility] [id number] ([id number]) ALT (SGPT) 31 [iU]/L (Normal) Range: 0-32 AST (SGOT) 35 [iU]/L (Normal) Range: 0-40 Alkaline Phosphatase, S 65 [iU]/L (Normal) Range: 42-107 Comments: Please note reference interval change Bilirubin, Total 0.6 mg/dL (Normal) Range: 0.0-1.2 A/G Ratio 1.6 (Normal) Range: 1.1-2.5 Globulin, Total 2.6 g/dL (Normal) Range: 1.5-4.5 Albumin, Serum 4.1 g/dL (Normal) Range: 3.5-5.5 Protein, Total, Serum 6.7 g/dL (Normal) Range: 6.0-8.5 Calcium, Serum 9.1 mg/dL (Normal) Range: 8.7-10.2 Carbon Dioxide, Total 22 mmol/L (Normal) Range: 19-28 Chloride, Serum 102 mmol/L (Normal) Range: 97-108 Potassium, Serum 4.5 mmol/L (Normal) Range: 3.5-5.2 Sodium, Serum 139 mmol/L (Normal) Range: 134-144 BUN/Creatinine Ratio 33 (Abnormal) Range: 8-20 eGFR If Africn Am 134 mL/min/1.73 (Normal) eGFR If NonAfricn Am 116 mL/min/1.73 (Normal) Creatinine, Serum 0.67 mg/dL (Normal) Range: 0.57-1.00 BUN 22 mg/dL (Abnormal) Range: 6-20 Glucose, Serum 85 mg/dL (Normal) Range: 65-99 Plan of Care Name Dates Details Instructions BMI 22.0-22.9, adult : Follow up - Make appt after diagnostic tests Indication: BMI 22.0-22.9, adult Nonsmoker : Eprescribed prescriptions (G8553) Indication: Nonsmoker Influenza vaccination declined (Renamed from Refused influenza vaccine) : Follow up - Make appt after diagnostic tests Indication: Influenza vaccination declined (Renamed from Refused influenza vaccine) Fatigue : *fatigue education Indication: Fatigue Nonsmoker : Eprescribed prescriptions (G8553) Indication: Nonsmoker Sinusitis, acute : *URI Treatment Indication: Sinusitis, acute Sinusitis, acute : *URI Symptoms Indication: Sinusitis, acute Sinusitis, acute : *Antibiotic Usage Education - Female Indication: Sinusitis, acute Fatigue : Fatigue: fatigue Indication: Fatigue Pneumonia : Follow up if no improvement or if symptoms worsen Indication: Pneumonia Constipation : Follow up in 2 weeks Indication: Constipation Planned Observations CALCIFEDIOL (67686)Indication: Vitamin D deficiency On: :24 Request EBV Panel ([id number])Indication: Elevated liver enzymes On: 04-Vpc-09768:29 Request AKFOU-IRIQOSFQQFO-RCWVF ([id number])Indication: Elevated liver enzymes On: 99-Kvg-15636:28 Request HEPATITIS PANEL (14714)Indication: Elevated liver enzymes On: :28 Request Sputum Culture ([id number])Indication: Cough On: 04-Tjh-125481:07 Request Rapid Flu (28875 x 2)Indication: Fever On: 64-Wes-567045:06 Request TEST - SERUM QUANTITATIVE (HCG) (68765)Indication: Other specified conditions associated with female genital organs and menstrual cycle On: 80-Vpa-191957:13 Request Comments: stat D-Dimer (19557)Indication: Pneumonia On: 71-Baj-517535:58 Request Comments: stat CBC WITH MANUAL DIFF (42660)Indication: Pneumonia On: 37-Mlm-185813:58 Request MONOSPOT TEST (32592)Indication: Abdominal pain, acute, right upper quadrant On: 0-Eka-592815:10 Request Planned Procedures Echo CompleteBy: Vivien Cortez CNP On: 10-Sep-2018 Intent Vivien Cortez CNP ULTRASOUND OF LIVER (66963)By: Diego On: 10-Sep-2018 Intent FARHEEN ThereseCharito Cortez CNP Therese ELECTROCARDIOGRAM, COMPLETE (ECG) On: 10-Sep-2018 Intent (89389)By: Vivien Cortez CNP Comments: Left atrial enlargement, ST elevateion repolarization, neg precordial T waves probably normal, will echo FARHEEN Therese Aerosol Treatment (96407)By: Reji On: 04-Jan-2016 Intent Klaudia OLIVEIRA Overnight Pulse OX (63737)By: Rafi On: 14-May-2014 Intent DO, Ivelisse A Aerosol Treatment (30989)By: Diego On: 25-Nov-2013 Intent FARHEEN ThereseCharito Cortez CNP Therese Eprescribed prescriptions (G8553)By: On: 09-Sep-2013 Intent Thelma Alvarez Spirometry (62598)By: Rafi DELUNA, On: 03-Jun-2013 Intent Ivelisse A Comments: good effort and curve mild obst Pulse Oximetry (82132)By: Rafi DO, On: 03-Jun-2013 Intent Ivelisse A Comments: 99 Ultrasound - PelvisBy: Rafi DO, On: 03-Jun-2013 Intent Ivelisse A Radiology - Chest- PA and LatBy: On: 03-Jun-2013 Intent Fast DO, Ivelisse A Echo CompleteBy: Fast DO, Ivelisse A On: 16-Apr-2013 Intent EKG (57470)By: Fast DO, Ivelisse A On: 16-Apr-2013 Intent Comments: ekg- sinus clifton normal axis - t wave inversion kead 1 v2- no other st t wave changes Eprescribed prescriptions (G8553)By: On: 16-Apr-2013 Intent Alessandra Shields Instructions Name Dates Details Nonsmoker : How to access health information online Indication: Nonsmoker Nonsmoker : How to access health information online - Detail Indication: Nonsmoker BMI 22.0-22.9, adult : Patient Instructions Indication: BMI 22.0-22.9, adult Nonsmoker : How to access health information online Indication: Nonsmoker Nonsmoker : How to access health information online - Detail Indication: Nonsmoker Nonsmoker : Patient Instructions Indication: Nonsmoker Lack of sexual desire : How to access health information online Indication: Lack of sexual desire Lack of sexual desire : How to access health information online - Detail Indication: Lack of sexual desire Fatigue : Patient Instructions Indication: Fatigue Abdominal wall hernia : Patient Instructions Indication: Abdominal wall hernia Pneumonia : Patient Instructions Indication: Pneumonia Fatigue : Patient Instructions Indication: Fatigue Encounters Office Visit On: 10-Sep-2018 7:57 Encounter Reason: Follow up tests - Diagnostic tests include other (labs). Date: (08/31). Note for Discuss procedure results: Follow up for lab result reviewEncounter Diagnosis: Nonsmoker, BMI 22.0-22.9, adult, Vitamin D deficiency, End: 10-Sep-2018 8:52 Fatigue (780.79), Elevated liver enzymes, Abnormal EKG [facility] Office Visit On: 31-Aug-2018 13:10 Encounter Reason: Fatigue - Symptoms include fatigue. Onset was 2 year(s) ago. The patient describes this as worsening. Note for Fatigue: Long time with fatigue and worsening. Daytime somulence. Occasional snoring.Fami End: 31-Aug-2018 14:00 ly history of thryoid. Dry eyeWorks out 45 min with lifting. Works pm at [employer] 8pm to 1 amEncounter Diagnosis: BMI 22.0-22.9, adult, Nonsmoker, Influenza vaccination declined (Renamed from Refused influenza vaccine), Sleep disorder, Fatigue (780.79) [facility] Phone Encounter On: 06-Oct-2016 9:18 Encounter Diagnosis: Shingles End: 06-Oct-2016 9:20 [facility] Office Visit On: 04-Jan-2016 9:02 Encounter Reason: Sinusitis - Symptoms include nasal congestion, purulent rhinorrhea, postnasal drainage, cheek pressure, cough and headache. Onset was sudden 8 day(s) ago. The symptoms occur constantly. The patient desc End: 04-Jan-2016 9:38 ribes this as worsening. Symptoms are exacerbated by lying down. Symptoms are not relieved by air conditioning, elevating head of bed, lying down, remaining upright, steam inhalation, hot compresses, no n-prescription analgesics, oral antihistamine, oral decongestant, decongestant nasal spray, oral mucolytic, saline nasal drops or oral antibiotic. Associated symptoms include chills. Current treatment i ncludes oral decongestant. By report there is good compliance with treatment. Previous presentation included nasal congestion, purulent rhinorrhea, postnasal drainage, forehead pressure, chills, cough a nd headache. Note for Sinusitis: Had so much pressure in head could not get head off of pillow missed 2 days of workEncounter Diagnosis: Cough, Flu-like symptoms, Sinusitis, acute [facility] Office Visit On: 14-May-2014 12:08 Encounter Reason: Fatigue - Symptoms include fatigue, while symptoms do not include weakness, poor sleep, impaired concentration, irritability, anxiety, depressed mood or myalgias. Onset was gradual month(s) ago. The sym End: 14-May-2014 21:03 ptoms occur frequently. The patient describes this as worsening. Associated symptoms include headache, while associated symptoms do not include fever, sore throat, cough, dyspnea, nausea, vomiting or ab dominal pain. The patient is not currently being treated for this problem. Note for Fatigue: eating healthy- exercising- wakes up and has coffee in am- thru day gets generalized fatigue and feels like if sits down falls asleep- feels run down - sleeping 5-6 hours a night- no sex drive - heavy breathing at night- not snoreEncounter Diagnosis: Fatigue (780.79), Lack of sexual desire, SOB (786.05) [facility] Office Visit On: 25-Nov-2013 16:56 Encounter Reason: Flu Like Symptoms - Symptoms include fever, chills, body aches, sneezing, productive cough and headache. Onset was sudden. There is no known event that preceded symptom onset. The patient describes this as worsening. End: 25-Nov-2013 17:17 Encounter Diagnosis: Fever, Cough, Pneumonia (486) [facility] Office Visit On: 09-Sep-2013 15:06 Encounter Reason: Hernia, Umbilical - Symptoms include bulge at the umbilicus and abdominal pain. The pain is located in the lower abdomen. There is no radiation. The patient describes the pain as sharp. Onset was sudden End: 09-Sep-2013 22:50 4 day(s) ago. There is no known event that preceded symptom onset. The symptoms occur constantly. The patient describes this as unchanged. Associated symptoms do not include nausea, vomiting, constipat ion or fever. The patient is not currently being treated for this problem.Encounter Diagnosis: Abdominal wall hernia, Constipation(564.00) [facility] Office Visit On: 03-Jun-2013 12:13 Encounter Reason: Follow up acute care visit - The patient improving (I stioll have that fatigue/worn down feeling). Note for Follow up acute care visit: amitiza didnt help at 24 mg bid and linzess didnt help either- h End: 03-Jun-2013 22:01 ad colonsoocpy- gets bloating and gas - fiber makes worse- metamucil, [ADDITIONAL REASON] Follow up tests - Date: (labs April and May). Note for Discuss procedure results: feels like better but chest heavy - no cough or wheeze Encounter Diagnosis: Pneumonia (486), Constipation(564.00), Pelvic Pain (625.9), Fatigue (780.79), SOB (786.05) [facility] Office Visit On: 24-May-2013 10:46 Encounter Reason: Follow up hospital - Reason for ER visit: pneumonia. The patient does not feel well, has decreased energy level and is sleeping well. Patient has been compliant with instructions. Current medication use End: 24-May-2013 11:15 : no side effects and compliant with dosing regimen. Patient sleeps 10 hours per night.Encounter Diagnosis: Abdominal pain, acute, right upper quadrant (789.01), Pneumonia (486), Kidney stone (592.0), Constipation(564.00) [facility] Office Visit On: 16-Apr-2013 13:55 Encounter Reason: Fatigue - Symptoms include fatigue, while symptoms do not include poor sleep, impaired concentration, irritability, anxiety or depressed mood. Onset was 7 month(s) ago. The symptoms occur intermittently End: 16-Apr-2013 23:27 . The patient describes this as worsening. Associated symptoms include headache. Current treatment includes exercise program (exercise regularly). Note for Fatigue: 2 children 2 and 5 year old childre n- and works early shift retail- sleeps well- getting 5-6 hours of sleep - has to get up at 3- works 4-10- has been doing that for a long time 10 yeasr but last [address]- gets tired and headache - does 7 meals a day- protien and good carbs and fat - worries alot feels overwhelmed - feels good working out - lifting and some cardio 6 days a week Encounter Diagnosis: Fatigue (780.79), Constipation(564.00), Abnormal EKG(794.31) [facility] [employer] [facility] Yoel Velazco; a guarantor
--- OUTSIDE RECORDS SUMMARY | 2018-11-11 06:25 | XMS RPT_ITS | Continuity of Care Document ---
:1980 Author Organization [facility] Address [address] [facility] [address] [place] [address] Phone Care Team Providers Name Role Phone Diego FARHEENVivien Unavailable Gisselle Short Unavailable Unavailable Unavailable Unavailable Problems Name Dates Details Abdominal pain, acute, right upper quadrant (789.01) Comments: ? 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 shows 8mm left sided calculi, but has pain on rt Status: Active Cough (R05, 786.2) Status: Active Fatigue (R53.83, 780.79) Comments: continue workup Status: Active Flu-like symptoms (R68.89, 780.99) Status: Active Influenza vaccination declined (Renamed from Refused influenza vaccine) (Z28.21, V64.06) Status: Active Lack of sexual desire (F52.0, 302.71) Status: Active Nonsmoker (Z78.9, V49.89) Status: Active Other specified conditions associated with female genital organs and menstrual cycle (N94.89, 629.89) Status: Active Shingles (B02.9, 053.9) Comments: calls and reports she was seen at a [facility] care and started on antiviral. Aware to cover lesions and is spread via touch (not airborne) and aware to come to office if not improving. Status: Active Sinusitis, acute (J01.90, 461.9) Status: Active Sleep disorder (G47.9, 780.50) Comments: ? narcolepsy or other Status: Active SOB (shortness of breath) on exertion (R06.02, 786.05) Status: Active Medications Name Dates Details AUGMENTIN, 875-125MG (Oral Tablet) 1 (one) Tablet bid for 14 days Quantity: 28 {Tablet} Refills: 0 Ordered:04-Jan-2016 Diego FARHEEN Vivien Castellanos FARHEEN Vivien Mcneill Start : 04-Jan-2016 End : 18-Jan-2016 Inactive AVELOX, 400MG (Oral Tablet) 1 Tablet daily for 10 days Refills: 0 Ordered:03-Jun-2013 Diego FARHEEN Vivien Castellanos FARHEEN Vivien Mcneill Start : 24-May-2013 End : 03-Jun-2013 Inactive LEVAQUIN, 500MG (Oral Tablet) 1 (one) Tablet daily for 10 days Quantity: 10 {Tablet} Refills: 0 Ordered:25-Nov-2013 Diego FARHEEN Vivien Castellanos CNP Vivien Mcneill Start : 25-Nov-2013 End : [...] days Quantity: 30 {Capsule} Refills: 0 Ordered:09-Sep-2013 Ivelisse Mckee DO Start : 09-Sep-2013 End : 09-Sep-2013 Discontinued Comments:per Gi doctor Cheratussin AC 100-10 MG/5ML Oral Solution 1-2 Teaspoon qhs prn for 0 days Quantity: 6 {Ounce} Refills: 0 Ordered:31-Aug-2018 Gisselle Short Start : 04-Jan-2016 End : 31-Aug-2018 Discontinued LACTULOSE, 20GM/30ML (Oral Solution) 1 Solution Solution 30mg tid prn constipation for 0 days Quantity: 500 ml Refills: 1 Ordered:04-Jan-2016 Klaudia Mendoza LPN Start : 09-Sep-2013 End : 04-Jan-2016 Discontinued LINZESS, 290 MCG (LINACLOTIDE) CAPSULES, 290 MCGMCG (Oral Capsule) (Free Text) 1 Capsule qd for 0 days Quantity: 30 {Capsule} Refills: 3 Ordered:09-Sep-2013 Fast Ivelisse DELUNA Start : 09-Sep-2013 End : 09-Sep-2013 Discontinued [...] smoker Vital Signs Date Test Result Details :32 Temperature 98.2 f Comments: Method: Temporal [...] Arm; Cuff Size: Standard Weight 146 lb 9-Mes-866277:00 Pulse 64 /min Comments: Pattern: Regular Respiration Rate 16 /min Comments: Pattern: Unlabored O2 SAT 98 % Comments: Room air BP Systolic 96 mm[Hg] Comments: Patient Position: Sitting; Cuff Location: Left Arm; Cuff Size: Standard BP Diastolic 60 mm[Hg] Comments: Patient Position: Sitting; Cuff Location: Left Arm; Cuff Size: Standard Weight 146 lb Results Date Description Value Details 36-Mth-076964:00 Influenza A&B Viral Comments: PATIENT NOT FASTINGPERFORMED BY: TRACIE BAC ON TRAC6370 [facility] [id number] Information: SRC:NASALS [id number] Culture (87366) Viral Culture,Rapid,Influenza FLUABN (Normal) Comments: Negative:No Influenza A or B detected. :06 Rapid Flu (20790 x 2) Influenza A Ag Negative a/b (Normal) :08 Microscopic Examination Comments: PATIENT WAS FASTINGPERFORMED BY: [place] [id number] [facility] [id number] BY: [address] [id number] Bacteria Few (Normal) Mucus Threads Present (Normal) Epithelial Cells (non renal) 0-10 {/hpf} (Normal) Range: 0 - 10 RBC 0-2 {/hpf} (Normal) Range: 0 - 2 WBC 0-5 {/hpf} (Normal) Range: 0 - 5 :08 T4, FREE (THYROXINE) Comments: PATIENT WAS FASTINGPERFORMED BY: [place] [id number] [facility] [id number] BY: [address] [id number] (72903) T4,Free(Direct) 1.23 ng/dL (Normal) Range: 0.82-1.77 :08 T3, FREE (TRIDOTHYRONINE) Comments: PATIENT WAS FASTINGPERFORMED BY: [place] 7804170 [facility] [id number] BY: [address] [id number] (90733) Triiodothyronine,Free,Serum 2.9 pg/mL (Normal) Range: 2.0-4.4 :08 TESTOSTERONE FREE (07642) Comments: PATIENT WAS FASTINGPERFORMED BY: [place] 7804170 [facility] [id number] BY: [address] [id number] Free Testosterone(Direct) 0.2 pg/mL (Normal) Range: 0.0-2.2 :08 PROLACTIN (83489) Comments: PATIENT WAS FASTINGPERFORMED BY: [place] [id number] [facility] [id number] BY: [address] [id number] Prolactin 5.7 ng/mL (Normal) Range: 4.8-23.3 :08 EBV Panel (06820) Comments: PATIENT WAS FASTINGPERFORMED BY: Lovli Cqtync4003 [facility] [id number] BY: [address] [id number] Interpretation: SPRCS (Normal) Comments: EBV Interpretation Chart [...] Equivoc al 9.0 - 10.9 Positive >10.9 88-Eig-79107:08 C-REACTIVE PROTEIN (84786) Comments: PATIENT WAS FASTINGPERFORMED BY: LovliSaint Barnabas Behavior[facility] Health CenterYstpyi9048 [facility] [id number] BY: [address] [id number] C-Reactive Protein, Quant 0.4 mg/L (Normal) Range: 0.0-4.9 26-Czm-52045:08 SED RATE ERYTHROCYTE Comments: PATIENT WAS FASTINGPERFORMED BY: Lovli Wrxqhf0726 [facility] [id number] BY: BN [facility] [id number] (52422) Sedimentation Rate-Westergren 2 mm/h (Normal) Range: 0-32 :08 Vitamin D Hydroxy Comments: PATIENT WAS FASTINGPERFORMED BY: Lovli Zfigig6176 [facility]in [place] [id number] BY: [address] [id number] (30840) Vitamin D, 25-Hydroxy 40.2 ng/mL (Normal) Range: 30.0-100.0 Comments: Vitamin D deficiency has been defined by the [place] of[facility] Hospitalcine and an Endocrine Society practice guideline as alevel of serum 25-OH vitamin D less than 20 ng/mL (1,2).The Endocrine Society went on to further define vitamin Dinsufficiency as a level between 21 and 29 ng/mL (2).1. IOM ([place] of Medicine). 2010. Dietary reference intakes for calcium and D. [place]: The National Academies Press.2. Teo MF, Michelle MIRANDA, Michela CRUZ, et al. Evaluation, treatment, and prevention of vitamin D deficiency: an Endocrine Society clinical practice guideline. JCEM. 2010; 96(7):1911-30. 26-Stg-92454:08 VITAMIN B-12 (CYANOCOBALAMIN) Comments: PATIENT WAS FASTINGPERFORMED BY: Lovli Hjesvj9103 [facility] [id number] BY: [employer] [id number] (41633) Vitamin B12 1969 pg/mL (Abnormal) Range: 211-946 78-Yxp-74246:08 URINALYSIS, W/ MICRO Comments: PATIENT WAS FASTINGPERFORMED BY: Lovli Shatfo9465 [facility] [id number] BY: [address] [id number] (05634) Microscopic Examination See below: (Normal) Comments: Microscopic was indicated and was performed. Nitrite, Urine Negative (Normal) Urobilinogen,Semi-Qn 0.2 mg/dL (Normal) Range: 0.0-1.9 Bilirubin Negative (Normal) Occult Blood Negative (Normal) Ketones Negative (Normal) Glucose Negative (Normal) Protein Negative (Normal) WBC Esterase 1+ (Abnormal) Appearance Clear (Normal) Urine-Color Yellow (Normal) pH 6.5 (Normal) Range: 5.0-7.5 Specific [place] 1.022 (Normal) Range: 1.005-1.030 :08 TSH (47409) Comments: PATIENT WAS FASTINGPERFORMED BY: [employer] Cefpnd3809 [facility] [id number] BY: Lovli[address] [id number] TSH 3.670 {uIU/mL} (Normal) Range: 0.450-4.500 :08 CBC WITH MANUAL DIFF Comments: PATIENT WAS FASTINGPERFORMED BY: [employer] Lsjeam[address] [place] [address] [id number] BY: [facility] [id number] Inf ormation: [id number] (82420) Immature Grans (Abs) 0.0 {x10E3/uL} (Normal) Range: [...] 3.77-5.28 WBC 4.6 {x10E3/uL} (Normal) Range: 3.4-10.8 98-Lvy-56454:08 METABOLIC PANEL, Comments: PATIENT WAS FASTINGPERFORMED BY: CB [facility] Enhpvv9050 [facility] [id number] BY: BN [facility] Pspysduamh9899 [facility] [id number] [facility] (81748) ALT (SGPT) 57 [iU]/L (Abnormal) Range: 0-32 [...] Glucose, Serum 83 mg/dL (Normal) Range: 65-99 24-Dxw-496439:57 PELVIC (NON ) Radiology Report See Note [...] Saldana M.D.June 06, 2013 at 9:37:54 PM [phone] Signed SN/SN If you are the referring physi flora and would like to consult with theradiologist who provided this interpretation, please contact Lucia Saldana M.D. at . If this radiologist is unavailable, you will bedirected to another r adiologist to assist. If you are a patient with a question regarding this report, pleasecontactyour referring physician directly. Professional Interpretation Provided By: [employer], Phone [phone], These documents contain legally protected and confidential [...] 06/06/132138 by ITS IMPORTSign by Ritika Saldana Susanna on 06/06/132139 Sign by: Ritika Saldana 00-Zwn-66850:00 TRANSVAGINAL NON- Radiology Report See Note Comments: [...] Saldana M.D.June 06, 2013 at 9:37:54 PM [phone] Signed SN/SN If you are the referring physi flora and would like to consult with theradiologist who provided this interpretation, please contact Lucia Saldana M.D. at . If this radiologist is unavailable, you will bedirected to another r adiologist to assist. If you are a patient with a question regarding this report, pleasecontactyour referring physician directly. Professional Interpretation Provided By: [employer], Phone , These documents contain legally protected [...] Saldana on 06/06/132139 Sign by: Ritika Saldana 47-Irl-437860:48 CHEST PA AND LATERAL Radiology Report See [...] Hu M.D.June 04, 2013 at 3:36:49 PM [id number] Signed GP/GP If you are the referring physician and would like to consult with theradiologist who provided this interpretation, please contact Osmani Flores at [phone]. If this radiologist is unavailable, youwill be directed to another radiologist to assist. If you are a patient with a question regarding this report, pleasecontactyour referring physician directly. Professional Interpretation Provided By: [employer], Phone , Thes e documents contain legally [...] re turn or destructionofthese documents. Dictated on 06/04/13 1536 by Christina Hu MDranscribed on 06/04/131537 by ITS IMPORTSign by Cruz Hu MD on 06/04/13 1539 Sign by: Cruz Hu MD 84-Zes-66987:01 CBCMD ANC 5.9 3/uL (Normal) Range: 2.0-7.7 [...] 4.2-5.4 WBC 8.5 {k/mm3} (Normal) Range: 4.4-11.0 : DDIMQ 0.35 {FEUug/mL} (Normal) Range: 0.22-0.48 Comments: NORMAL D-Dimer level indicates no DVT or PE. :01 PREGS tPREGS NEGATIVE {Negative} (Normal) Range: 0-9 Nonpreg 0-Qaz-179520:19 CULTURE, SPUTUM (85042) Comments: PATIENT NOT FASTINGPERFORMED BY: [employer] [place] [id number] Information: SRC:[facility] [id number] Result 1 RRF (Normal) Comments: Routine respiratory mila Lower Respiratory Culture Final report (Normal) :28 Microscopic Examination Comments: PATIENT NOT FASTINGPERFORMED BY: [place] [id number] Bacteria Few (Normal) Mucus Threads Present (Normal) Epithelial Cells (non renal) 0-10 {/hpf} (Normal) Range: 0 - 10 RBC 0-3 {/hpf} (Normal) Range: 0 - 3 WBC 0-5 {/hpf} (Normal) Range: 0 - 5 :28 Vitamin D Hydroxy (12902) Comments: PATIENT NOT FASTINGPERFORMED BY: [address] [place] [id number] Vitamin D, 25-Hydroxy 39.8 ng/mL (Normal) Range: 30.0-100.0 Comments: Vitamin D deficiency has been defined by the [place] ofMedicine and an Endocrine Society practice guideline as alevel of serum 25-OH vitamin D less than 20 ng/mL (1,2).The Endocrine Society went on to further define vitamin Dinsufficiency as a level between 21 and 29 ng/mL (2).1. IOM ([place] of Medicine). 2010. Dietary reference intakes for calcium and D. [place]: The National Academies Press.2. Teo MF, Michelle MIRANDA, Michela CRUZ, et al. Evaluation, treatment, and prevention of vitamin D deficiency: an Endocrine Society clinical practice guideline. JCEM. 2010; 96(7):1911-30. :28 VITAMIN B-12 (CYANOCOBALAMIN) Comments: PATIENT NOT FASTINGPERFORMED BY: [employer]6370 [facility] [id number] (71538) Vitamin B12 1334 pg/mL (Abnormal) Range: 211-946 :28 EBV Panel (08059) Comments: PATIENT NOT FASTINGPERFORMED BY: [employer]6370 [facility] [id number] Interpretation: SPRCS (Normal) Comments: EBV Interpretation Chart [...] 1.0 Positive >1.0 :28 URINALYSIS, W/ MICRO (04870) Comments: PATIENT NOT FASTINGPERFORMED BY: [facility]6370 [facility] [id number] Microscopic Examination See below: (Normal) Microscopic Examination MICRON (Normal) Comments: Microscopic follows if indicated. Nitrite, Urine Negative (Normal) Urobilinogen,Semi-Qn 0.2 mg/dL (Normal) Range: 0.0-1.9 Bilirubin Negative (Normal) Occult Blood Negative (Normal) Ketones Negative (Normal) Glucose Negative (Normal) Protein Negative (Normal) WBC Esterase Negative (Normal) Appearance Cloudy (Abnormal) Urine-Color Yellow (Normal) pH 6.0 (Normal) Range: 5.0-7.5 Specific [place] 1.030 (Normal) Range: 1.005-1.030 :28 TSH (67029) Comments: PATIENT NOT FASTINGPERFORMED BY: [facility]6370 [facility] [id number] TSH 1.890 {uIU/mL} (Normal) Range: 0.450-4.500 :28 CBC WITH MANUAL DIFF Comments: PATIENT NOT FASTINGPERFORMED BY: [facility]6370 [facility] [id number] Information: ADD [id number] AND DRAW FEE 97 3093 PLEASE FAX RESULTS TO (92275) Immature Grans (Abs) 0.0 {x10E3/uL} (Normal) Range: [...] 3.77-5.28 WBC 6.2 {x10E3/uL} (Normal) Range: 4.0-10.5 72-Pcr-04950:28 METABOLIC PANEL, COMPREHENSIVE Comments: PATIENT NOT FASTINGPERFORMED BY: [facility] Jfpvsa0159 [facility] [id number] (71895) ALT (SGPT) 31 [iU]/L (Normal) Range: 0-32 [...] Plan of Care Name Dates Details Instructions Influenza vaccination declined (Renamed from Refused influenza [...] in 2 weeks Indication: Constipation Planned Observations CALCIFIDIOL (23954) VIT D 25Indication: Fatigue On: :52 Request Folate (89945)Indication: Fatigue On: :52 Request VITAMIN B-12 (CYANOCOBALAMIN) (43484)Indication: Fatigue On: :52 Request TSH (90174)Indication: Fatigue On: :52 Request SED RATE ERYTHROCYTE (06215)Indication: Fatigue On: :52 Request RHEUMATOID FACTOR-QUANT (82141)Indication: Fatigue On: :52 Request METABOLIC PANEL, COMPREHENSIVE (93906)Indication: Fatigue On: :52 Request C-REACTIVE PROTEIN (81513)Indication: Fatigue On: 38-Jks-583128:52 Request CBC (AUTO) (31154)Indication: Fatigue On: 15-Xem-859113:52 Request HARMONY (ANTINUCLEAR ANTIBODY) (85131)Indication: Fatigue On: 38-Dpo-175714:52 Request Sputum Culture (62832)Indication: Cough On: 46-Dij-479260:07 Request Rapid Flu (72244 x 2)Indication: Fever On: 94-Cnx-863980:06 Request TEST - SERUM QUANTITATIVE (HCG) (76885)Indication: Other specified conditions associated with female genital organs and menstrual cycle On: 87-Cwz-790717:13 Request Comments: stat D-Dimer (63458)Indication: Pneumonia On: 00-Fho-166222:58 Request Comments: stat CBC WITH MANUAL DIFF (41744)Indication: Pneumonia On: 74-Tul-301456:58 Request MONOSPOT TEST (55197)Indication: Abdominal pain, acute, right upper quadrant On: 9-Txf-708262:10 Request Planned Procedures Aerosol Treatment (52385)By: Reji On: 04-Jan-2016 Intent Klaudia OLIVEIRA Overnight Pulse OX (18862)By: Rafi On: 14-May-2014 Intent DO Ivelisse A Aerosol Treatment (82586)By: Diego On: 25-Nov-2013 Intent Vivien ZHONG CNP, Mary E Eprescribed prescriptions (G8553)By: On: 09-Sep-2013 Intent Thelma Alvarez Spirometry (19574)By: Ivelisse Mckee DO On: 03-Jun-2013 Intent A Comments: good effort and curve mild obst Pulse Oximetry (40535)By: Rafi DELUNA, On: 03-Jun-2013 Intent Ivelisse A Comments: 99 Ultrasound - PelvisBy: Ivelisse Mckee DO On: 03-Jun-2013 Intent A Radiology - Chest- PA and LatBy: Rafi On: 03-Jun-2013 Intent Ivelisse DELUNA A Echo CompleteBy: Rafi DELUNA Ivelisse A On: 16-Apr-2013 Intent EKG (34804)By: Ivelisse Mckee DO A On: 16-Apr-2013 Intent Comments: ekg- sinus [...] Instructions Indication: Fatigue Encounters Office Visit On: 31-Aug-2018 13:10 Encounter Reason: [...] Abnormal EKG(794.31) [facility] [employer] [place] [facility] [employer]el Velazco; curt guarantor
--- OUTSIDE RECORDS SUMMARY | 2018-11-11 06:25 | XMS RPT_ITS ---
:1980 Author Organization [facility] Care Team Providers Name Role Phone Andi Blake Attending Unavailable CiesaAndi Referring Unavailable Andi Blake Consulting Unavailable Andi Blake Attending Unavailable Fast, Ivelisse Referring Unavailable Andi Blake Primary Care Unavailable Miguel A Waters Attending Unavailable Andi Blake Referring Unavailable PROBLEMS PROBLEMS No Problem Records FoundPROCEDURES PROCEDURES No Procedure Records FoundRESULTS RESULTS ECHOCARDIOGRAM COMPLETE Observed: 09/25/2018 Status: F Source: [place] 4:59 PM [facility] [place] Cardiovascular Services [address] [place] [address] Echo Complete 09/25/18 0903 MR#: [id number] Acct: [id number] Name: CHANTAL SUE Rep #: [id number] : 1980 38 From: Miguel A Waters MD Attending Dr: Andi Blake NP Status: REG CLI Ordering Dr: Andi Blake MANAGER MANAGING-C Date: 09/25/18 Location: [facility] Sex: F C Admitted: Reason For Study: ABN EKG Procedure This was a 2D Doppler, Color Flow transthoracic echocardiogram. The exam was of adequate technical quality. Exam performed in department. Left Ventricle Normal LV size. Left ventricular systolic function is normal. The estimated ejection fraction is 55 %. No evidence for diastolic dysfunction. No regional wall motion abnormalities noted. Right Ventricle Normal RV size. Normal systolic function. Atria Normal left atrium. Normal right atrium. Hypermobile atrial septum. No doppler evidence for ASD. Mitral Valve There is no mitral annular calcification. Mild diffuse mitral valve thickening. Trivial mitral valve insufficiency. Tricuspid Valve Normal tricuspid valve. Mild to moderate (1-2+) tricuspid valve insufficiency. Right ventricular systolic pressure estimated to be 22 mmHg. Aortic Valve Trisinus/trileaflet aortic valve. Mild diffuse aortic valve thickening. Pulmonic Valve The pulmonic valve is not well visualized. Great Vessels Normal sized aortic root. Pericardium/Pleural No pericardial effusion. MMode/2D Measurements AND Calculations LVIDd: 4.9 cm IVSd: 0.80 cm Ao root diam: 3.3 cm LVIDs: 3.3 cm LVPWd: 0.82 cm RVDd: 4.3 cm FS: 31.6 % LAV(MOD-bp): 46.3 ml LVAd ap4: 32.2 cm2 SV(MOD-sp4): 58.4 ml LAV(MOD-bp) Indexed: 24.2 ml/m2 EDV(MOD-sp4): 101.7 ml LAV(MOD-sp2): 46.8 ml EDV(sp4-el): 106.2 ml LAV(MOD-sp4): 43.1 ml LVAs ap4: 18.6 cm2 ESV(MOD-sp4): 43.3 ml ESV(sp4-el): 44.5 ml EF(MOD-sp4): 57.4 % EF(sp4-el): 58.1 % SV(sp4-el): 61.7 ml LA A4 area: 17.4 cm2 LA dimension(2D): 3.2 cm RA A4 area: 16.2 cm2 Time Measurements MV dec time: 0.32 sec Doppler Measurements AND Calculations MV E max nicholas: 52.2 cm/sec Lat Peak E' Nicholas: 10.7 cm/sec Med Peak E' Nicholas: 8.5 cm/sec MV A max nicholas: 38.9 cm/sec E/E' lat: 4.9 E/E' med: 6.2 MV E/A: 1.3 Ao V2 max: 122.0 cm/sec LV V1 max: 91.8 cm/sec PA V2 max: 88.4 cm/sec Ao max P.0 mmHg LV V1 max P.4 mmHg TR max nicholas: 214.3 cm/sec TR max P.5 mmHg Interpretation Summary Left ventricular systolic function is normal. The estimated ejection fraction is 55 %. Mild diffuse mitral valve thickening. Trivial mitral valve insufficiency. Mild to moderate (1-2+) tricuspid valve insufficiency. Mild diffuse aortic valve thickening. Right ventricular systolic pressure estimated to be 22 mmHg. No evidence for diastolic dysfunction. Ordering Physician: Andi Blake Referring Physician: ANDI BLAKE Performed By: Carla Rouse, RDCS, RVT 09/25/181657 Date Miguel A Waters MD CC: Andi Blake MANAGER MANAGING; Ivelisse Mckee DO Date Dictated: 09/25/18902 Date Transcribed: 09/25/181657 [employer]illing Machine Tender: Signed LIVER Observed: 09/25/2018 Status: F Source: [place] 8:30 AM [facility] Imaging Services [address] [place] [address] [place] [address] Liver MR#: [id number] Acct: [id number] Name: CHANTAL SUE Rep #: [id number] : 1980 F 38 From: Cruz Hu MD PCP: Ivelisse Mckee DO Status: REG CLI Study: Liver Date of Exam: 09/25/18 Exam# [id number] Ordering Dr: Andi Blake MANAGER MANAGING-C STUDY: ABDOMINAL ULTRASOUND - RIGHT UPPER QUADRANT REASON FOR VISIT: Female, 38 years old. Elevated liver function tests. TECHNIQUE: Ultrasound evaluation of the right upper quadrant was performed with real-time and static wright-scale imaging. TECHNICAL QUALITY: Adequate. COMPARISON: None. FINDINGS: Liver: The liver measures 16.6 cm. There is normal echogenicity of the liver. The bile ducts are within normal limits. There is hepatic color flow. The direction of portal flow is hepatopetal. There is no demonstrated mass lesion. Gallbladder: Normal distended gallbladder. The gallbladder wall measures 2.7 mm. There is a negative sonographic Chery's sign. There is no pericholecystic fluid. There are no gallstones. Common Bile Duct (C.B.D.): The common bile duct measures 3.7 mm. Pancreas: Normal size of the head, body and tail of the pancreas. There is normal echogenicity of the pancreas. There is no demonstrated pancreatic mass or cyst. Right Kidney: Normal size of the right kidney. The right kidney measures 11.7 cm x 4.7 cm x 4.5 cm. Normal renal cortex. The right cortex measures 2.0 cm. There is no demonstrated renal mass or cyst. There is no right hydronephrosis. US/Liver IMPRESSION: Normal right upper quadrant ultrasound examination. Electronically Signed: Cruz Hu MD at 14:52 EST Tel [phone], Service support , CC: Andi Blake NP; Ivelisse Mckee DO Wood Milling Machine Tender: Signed ALLERGIES ALLERGIES No Allergies Records FoundENCOUNTERS ENCOUNTERS ADMIT/DISCHARGE ACCOUNT ADMITTING ENCOUNTER LOCATION SOURCE NUMBER CLASS 09/25/2018 [id number] [facility] [place] [facility] 09/25/2018 [id number] Ambulatory BMSBuilding:[address] [place] [address] [facility] Repository 09/03/2018 [id number] Ambulatory Building:[facility] Practices Repository PAYERS PAYERS ENCOUNTER GUARANTOR PAYER SUBSCRIBER SOURCE 09/25/2018 MIKE Fan Primary Insurance:MED MIKE Osorio [id number] [facility] [address] Number: [place], [place] [id number] Repository [address]Ltv: 330) Date:2089-52-14FJ [phone] () [id number], [place] [address]TB: CHECK WEBSITE 09/25/2018 Secondary NOT GIVENUNK [place] Insurance:SELF PAY [facility] Number: Effective Repository Date:2018-09-10 09/25/2018 MIKE J Primary Insurance:MED MIKE J [place] [id number] [facility] [id number] Repository [address]Hss: ([phone]) Date:1493-25-03GW [phone] () [address], [place] [address]SO: CHECK WEBSITE 09/25/2018 Secondary NOT GIVENUNK [place] Insurance:SELF PAY [facility] Number: Effective Repository Date:2018-09-25 09/03/2018 Chantal R Primary Mike J [facility] Practices HewittDOB: Insurance:Medical HewittDOB: Repository [id number] [facility] [id number] [facility] Number: [address] [place], [place] [id number], [place] [address]Ymj: 330) Date:8451-01-02Xeof [address]Kml: (HP)Tel: Name:[facility] [place]en [phone] () [address], [place] () [id number]: 09/03/2018 Secondary Mike J [facility] Practices Insurance:Medical HewittDOB: Repository [facility] [id number] Number: 3 [facility] [id number] [place], [place] Date:2012-10-16 [address]Qwi: [phone]) [id number] [phone] (HP) Name:[facility] [address], [place] [id number]:
--- OUTSIDE RECORDS SUMMARY | 2018-11-11 06:25 | XMS RPT_ITS | Continuity of Care Document ---
:1980 Author Organization [facility] Address [facility]7 [facility] 2 [place] [address] Phone Care Team Providers Name Role Phone Diego FARHEENVivien Unavailable Gisselle Short Unavailable Unavailable Unavailable Unavailable Problems Name Dates Details Abdominal pain, acute, right upper quadrant (789.01) Comments: ? 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 Aware to [...] Quantity: 28 {Tablet} Refills: 0 Ordered:04-Jan-2016 Diego PSYCHOLOGY TECHNICIAN, Vivien Castellanos CNP, Vivien Mcneill Start : 04-Jan-2016 End : 18-Jan-2016 Inactive AVELOX, 400MG (Oral Tablet) 1 Tablet daily for 10 days Refills: 0 Ordered:03-Jun-2013 Diego PSYCHOLOGY TECHNICIAN, Vivien Castellanos PSYCHOLOGY TECHNICIAN, Vivien Mcneill Start : 24-May-2013 End : [...] Quantity: 500 ml Refills: 1 Ordered:04-Jan-2016 Slarb TECHNICAL SUPPORT PROFESSIONAL, Klaudia Start : 09-Sep-2013 End : 04-Jan-2016 [...] 146 lb Results Date Description Value Details :08 EBV Panel (70298) Comments: PATIENT NOT FASTINGPERFORMED BY: Pegg'd Bulu Box [facility] [id number] Interpretation: SPRCS (Normal) Comments: EBV Interpretation Chart . Interpretation EBV-IgM EA(D)-IgG VCA-IgG EBNA-IgG . EBV Seronegative - - - - Early Phase + - - - Acute Primary + +or- + - Infection Convalescence/Past - +or- + + Infection Reactivated +or- + + + Infection + Antibody Present - Antibody Absent EBV Nuclear Antigen Ab, IgG 262.0 U/mL (Abnormal) Range: 0.0-17.9 Comments: Negative <18.0 Equivocal 18.0 - 21.9 Positive >21.9 EBV Ab VCA, IgG 565.0 U/mL (Abnormal) Range: 0.0-17.9 Comments: Negative <18.0 Equivocal 18.0 - 21.9 Positive >21.9 EBV Early Antigen Ab, IgG 30.5 U/mL (Abnormal) Range: 0.0-8.9 Comments: Hepatitis A, Hepatitis C and HIV antibodies may cross-reactwith this assay. Negative < 9.0 Equivoc al 9.0 - 10.9 Positive >10.9 EBV Ab VCA, IgM <36.0 U/mL (Normal) Range: 0.0-35.9 Comments: Negative <36.0 Equivocal 36.0 - 43.9 Positive >43.9 :08 [id number]-ZDOSFSAEIUZ-PTRKV (96410) Comments: PATIENT NOT FASTINGPERFORMED BY: Pegg'dRehabilitation Hospital of South JerseyZrawrx0222 [facility] [id number] AFP, Serum, Tumor Marker 7.1 ng/mL (Normal) Range: 0.0-8.3 Comments: Pinguo ECLIA methodology :08 HEPATITIS PANEL (49721) Comments: PATIENT NOT FASTINGPERFORMED BY: [employer] Davies Mechanical EngineeringDetroit Receiving Hospital6370 [facility] [id number] Hep C Virus Ab 0.2 {s/co_ratio} (Normal) Range: 0.0-0.9 Comments: Negative: < 0.8 Indeterminate: 0.8 - 0.9 Positive: > 0.9 . The CDC recommends that a positive HCV antibody result be followed up with a HCV Nucleic Acid Amplification test (187188). Hep B Core Ab, IgM Negative (Normal) HBsAg Screen Negative (Normal) Hep A Ab, IgM Negative (Normal) 96-Wfy-084752:22 CALCIFIDIOL (77761) VIT D 25 Comments: PATIENT NOT FASTINGPERFORMED BY: [facility] Hvdxwt8583 [address] [place] [id number] Vitamin D, 25-Hydroxy 23.8 ng/mL (Abnormal) Range: 30.0-100.0 Comments: Vitamin D deficiency has been defined by the [place] ofMedicine and an Endocrine Society practice guideline as alevel of serum 25-OH vitamin D less than 20 ng/mL (1,2).The Endocrine Society went on to further define vitamin Dinsufficiency as a level between 21 and 29 ng/mL (2).1. IOM ([place] of Medicine). 2010. Dietary reference intakes for calcium and D. [place]: The National Academies Press.2. Teo MF, Michelle MIRANDA, Michela CRUZ, et al. Evaluation, treatment, and prevention of vitamin D deficiency: an Endocrine Society clinical practice guideline. JCEM. 2010; 96(7):1911-30. 20-Gnw-480516:22 Folate (86176) Comments: PATIENT NOT FASTINGPERFORMED BY: [facility] Usxods5512 [address] [facility] HospitalGuestmobblin [place] [id number] Folate (Folic Acid), Serum >20.0 ng/mL (Normal) Comments: A serum folate concentration of less than 3.1 ng/mL isconsidered to represent clinical deficiency. 13-Qto-306346:22 VITAMIN B-12 (CYANOCOBALAMIN) Comments: PATIENT NOT FASTINGPERFORMED BY: [facility] Sltpox9928 [address] [facility] HospitalGuestmobblin [place] [id number] (72423) Vitamin B12 842 pg/mL (Normal) Range: 232-1245 39-Zxl-229235:22 TSH (12366) Comments: PATIENT NOT FASTINGPERFORMED BY: [facility] Qdidqf0789 [address] [facility] HospitalDublin [place] [id number] TSH 1.030 {uIU/mL} (Normal) Range: 0.450-4.500 08-Aci-725762:22 SED RATE ERYTHROCYTE (26330) Comments: PATIENT NOT FASTINGPERFORMED BY: [facility]6370 [facility] [id number] Sedimentation Rate-Westergren 2 mm/h (Normal) Range: 0-32 29-Vau-256184:22 RHEUMATOID FACTOR-QUANT (97999) Comments: PATIENT NOT FASTINGPERFORMED BY: LabCoRehabilitation Hospital of South JerseyCaataq2935 [facility] [id number] RA Latex Turbid. <10.0 {IU/mL} (Normal) Range: 0.0-13.9 72-Ipf-112939:22 METABOLIC PANEL, COMPREHENSIVE Comments: PATIENT NOT FASTINGPERFORMED BY: [employer] Davies Mechanical EngineeringDetroit Receiving Hospital6370 [facility] [id number] (98657) ALT (SGPT) 36 [iU]/L (Abnormal) Range: 0-32 [...] 6-20 Glucose 83 mg/dL (Normal) Range: 65-99 51-Ddi-092540:22 C-REACTIVE PROTEIN (80687) Comments: PATIENT NOT FASTINGPERFORMED BY: [facility]6370 [facility] [id number] C-Reactive Protein, Quant <0.3 mg/L (Normal) Range: 0.0-4.9 50-Raq-147057:22 CBC (AUTO) (64545) Comments: PATIENT NOT FASTINGPERFORMED BY: [place] 0868370 [facility] [id number] Platelets 252 {x10E3/uL} (Normal) Range: 150-379 RDW 12.5 % (Normal) Range: 12.3-15.4 MCHC 33.0 g/dL (Normal) Range: 31.5-35.7 MCH 30.7 pg (Normal) Range: 26.6-33.0 MCV 93 fL (Normal) Range: 79-97 Hematocrit 43.9 % (Normal) Range: 34.0-46.6 Hemoglobin 14.5 g/dL (Normal) Range: 11.1-15.9 RBC 4.73 {x10E6/uL} (Normal) Range: 3.77-5.28 WBC 7.7 {x10E3/uL} (Normal) Range: 3.4-10.8 20-Nop-240691:22 HARMONY (ANTINUCLEAR ANTIBODY) Comments: PATIENT NOT FASTINGPERFORMED BY: [place] 0868370 [facility] [id number] (47535) HARMONY Direct Negative (Normal) 80-Agl-114633:00 Influenza A&B Viral Comments: PATIENT NOT FASTINGPERFORMED BY: [place] 0868370 [facility] [id number] Information: SRC:NASALS [id number] Culture (38042) Viral Culture,Rapid,Influenza FLUABN (Normal) Comments: Negative:No Influenza A or B detected. 88-Jec-32941:06 Rapid Flu (54822 x 2) Influenza A Ag Negative a/b (Normal) 30-Nzt-92066:08 Microscopic Examination Comments: PATIENT WAS FASTINGPERFORMED BY: [place] 0868370 [facility] [id number] BY: [address] [id number] Bacteria Few (Normal) Mucus Threads Present (Normal) Epithelial Cells (non renal) 0-10 {/hpf} (Normal) Range: 0 - 10 RBC 0-2 {/hpf} (Normal) Range: 0 - 2 WBC 0-5 {/hpf} (Normal) Range: 0 - 5 :08 T4, FREE (THYROXINE) Comments: PATIENT WAS FASTINGPERFORMED BY: [place] 0868370 [facility] [id number] BY: [address] [id number] (82917) T4,Free(Direct) 1.23 ng/dL (Normal) Range: 0.82-1.77 :08 T3, FREE (TRIDOTHYRONINE) Comments: PATIENT WAS FASTINGPERFORMED BY: [place] 0868370 [facility] [id number] BY: [address] [id number] (99815) Triiodothyronine,Free,Serum 2.9 pg/mL (Normal) Range: 2.0-4.4 :08 TESTOSTERONE FREE (91877) Comments: PATIENT WAS FASTINGPERFORMED BY: [place] 0868370 [facility] [id number] BY: [address] [id number] Free Testosterone(Direct) 0.2 pg/mL (Normal) Range: 0.0-2.2 :08 PROLACTIN (40775) Comments: PATIENT WAS FASTINGPERFORMED BY: [place] 0868370 [facility] [id number] BY: [address] [id number] Prolactin 5.7 ng/mL (Normal) Range: 4.8-23.3 :08 EBV Panel (16942) Comments: PATIENT WAS FASTINGPERFORMED BY: Pegg'dNorthern Navajo Medical CenterZoourj1332 [facility] [id number] BY: [address] [id number] Interpretation: SPRCS (Normal) Comments: EBV Interpretation Chart [...] Equivoc al 9.0 - 10.9 Positive >10.9 :08 C-REACTIVE PROTEIN (99392) Comments: PATIENT WAS FASTINGPERFORMED BY: Pegg'dRehabilitation Hospital of South JerseyIzmmil5109 [facility] [id number] BY: [address] [id number] C-Reactive Protein, Quant 0.4 mg/L (Normal) Range: 0.0-4.9 :08 SED RATE ERYTHROCYTE Comments: PATIENT WAS FASTINGPERFORMED BY: Pegg'd[address] [id number] BY: Pegg'd[address] [id number] (68860) Sedimentation Rate-Westergren 2 mm/h (Normal) Range: 0-32 :08 Vitamin D Hydroxy Comments: PATIENT WAS FASTINGPERFORMED BY: Pegg'd Nztnbn6171 [facility] [id number] BY: [employer] [id number] (94538) Vitamin D, 25-Hydroxy 40.2 ng/mL (Normal) Range: 30.0-100.0 Comments: Vitamin D deficiency has been defined by the [place] ofOhiohealth Grant Medical Centercine and an Endocrine Society practice guideline as alevel of serum 25-OH vitamin D less than 20 ng/mL (1,2).The Endocrine Society went on to further define vitamin Dinsufficiency as a level between 21 and 29 ng/mL (2).1. IOM ([place] of Medicine). 2010. Dietary reference intakes for calcium and D. [place]: The National Academies Press.2. Teo MF, Michelle NC, Michela CRUZ, et al. Evaluation, treatment, and prevention of vitamin D deficiency: an Endocrine Society clinical practice guideline. JCEM. 2010; 96(7):1911-30. :08 VITAMIN B-12 (CYANOCOBALAMIN) Comments: PATIENT WAS FASTINGPERFORMED BY: [employer] Twwrlm5339 [facility] [id number] BY: [employer] [id number] (98552) Vitamin B12 1969 pg/mL (Abnormal) Range: 211-946 :08 URINALYSIS, W/ MICRO Comments: PATIENT WAS FASTINGPERFORMED BY: [employer] Owbxyy6771 [facility] [id number] BY: [employer] [id number] (49303) Microscopic Examination See below: (Normal) Comments: Microscopic was indicated and was performed. Nitrite, Urine Negative (Normal) Urobilinogen,Semi-Qn 0.2 mg/dL (Normal) Range: 0.0-1.9 Bilirubin Negative (Normal) Occult Blood Negative (Normal) Ketones Negative (Normal) Glucose Negative (Normal) Protein Negative (Normal) WBC Esterase 1+ (Abnormal) Appearance Clear (Normal) Urine-Color Yellow (Normal) pH 6.5 (Normal) Range: 5.0-7.5 Specific [place] 1.022 (Normal) Range: 1.005-1.030 :08 TSH (92368) Comments: PATIENT WAS FASTINGPERFORMED BY: [employer] Pcextm0895 [facility] [id number] BY: nprogress [address] [id number] TSH 3.670 {uIU/mL} (Normal) Range: 0.450-4.500 :08 CBC WITH MANUAL DIFF Comments: PATIENT WAS FASTINGPERFORMED BY: [employer] [place] [address] [id number] BY: [employer]progress [address] [id number] Inf ormation: [id number] (10418) Immature Grans (Abs) 0.0 {x10E3/uL} (Normal) Range: [...] 3.77-5.28 WBC 4.6 {x10E3/uL} (Normal) Range: 3.4-10.8 84-Dsb-28734:08 METABOLIC PANEL, Comments: PATIENT WAS FASTINGPERFORMED BY: CB [facility] Efdjjc9360 [facility] [id number] BY: BN [facility] Xkoftlzkeu7291 [facility] [id number] COMPREHENSIVE (97730) ALT (SGPT) 57 [iU]/L (Abnormal) Range: 0-32 [...] Glucose, Serum 83 mg/dL (Normal) Range: 65-99 32-Blh-913928:57 PELVIC (NON ) Radiology Report See Note [...] Saldana M.D.June 06, 2013 at 9:37:54 PM [phone] Signed SN/SN If you are the referring physi flora and would like to consult with theradiologist who provided this interpretation, please contact Lucia Saldana M.D. at . If this radiologist is unavailable, you will bedirected to another r adiologist to assist. If you are a patient with a question regarding this report, pleasecontactyour referring physician directly. Professional Interpretation Provided By: Luis Miguel, Phone [phone], These documents contain legally protected and confidential [...] Susanna on 06/06/132139 Sign by: Ritika Saldana Susanna 47-Jgy-92602:00 TRANSVAGINAL NON- Radiology Report See Note Comments: [...] Saldana M.D.June 06, 2013 at 9:37:54 PM [phone] Signed SN/SN If you are the referring physi flora and would like to consult with theradiologist who provided this interpretation, please contact Lucia Saldana M.D. at . If this radiologist is unavailable, you will bedirected to another r adiologist to assist. If you are a patient with a question regarding this report, pleasecontactyour referring physician directly. Professional Interpretation Provided By: [employer], Phone [phone], These documents contain legally protected and confidential [...] Saldana on 06/06/132139 Sign by: Ritika Saldana 70-Hmo-904730:48 CHEST PA AND LATERAL Radiology Report See [...] Hu M.D.June 04, 2013 at 3:36:49 PM [phone] Signed GP/GP If you are the referring physician and would like to consult with theradiologist who provided this interpretation, please contact Osmani Flores at [phone]. If this radiologist is unavailable, youwill be directed to another radiologist to assist. If you are a patient with a question regarding this report, pleasecontactyour referring physician directly. Professional Interpretation Provided By: [employer], Phone , Thes e documents contain legally [...] on 06/04/131538 Sign by: Cruz Hu MD 17-Icg-97256:01 CBCMD ANC 5.9 3/uL (Normal) Range: 2.0-7.7 [...] tPREGS NEGATIVE {Negative} (Normal) Range: 0-9 Nonpreg 6-Nmr-986318:19 CULTURE, SPUTUM (72036) Comments: PATIENT NOT FASTINGPERFORMED BY: [employer] [place] [id number] Information: SRC:[facility] [id number] Result 1 RRF (Normal) Comments: Routine respiratory mila Lower Respiratory Culture Final report (Normal) :28 Microscopic Examination Comments: PATIENT NOT FASTINGPERFORMED BY: [employer]6370 [employer] Pharm[employer] [place] [id number] Bacteria Few (Normal) Mucus Threads Present (Normal) Epithelial Cells (non renal) 0-10 {/hpf} (Normal) Range: 0 - 10 RBC 0-3 {/hpf} (Normal) Range: 0 - 3 WBC 0-5 {/hpf} (Normal) Range: 0 - 5 :28 Vitamin D Hydroxy (47135) Comments: PATIENT NOT FASTINGPERFORMED BY: [employer] Research RoadDublin [place] [id number] Vitamin D, 25-Hydroxy 39.8 ng/mL (Normal) Range: 30.0-100.0 Comments: Vitamin D deficiency has been defined by the [place] ofMedicine and an Endocrine Society practice guideline as alevel of serum 25-OH vitamin D less than 20 ng/mL (1,2).The Endocrine Society went on to further define vitamin Dinsufficiency as a level between 21 and 29 ng/mL (2).1. IOM ([place] of Medicine). 2010. Dietary reference intakes for calcium and D. [place]: The National Academies Press.2. Teo MF, Michelle MIRANDA, Michela CRUZ, et al. Evaluation, treatment, and prevention of vitamin D deficiency: an Endocrine Society clinical practice guideline. JCEM. 2010; 96(7):1911-30. :28 VITAMIN B-12 (CYANOCOBALAMIN) Comments: PATIENT NOT FASTINGPERFORMED BY: Pegg'd Uihtpw1065 [facility] [id number] (18735) Vitamin B12 1334 pg/mL (Abnormal) Range: 211-946 :28 EBV Panel (86220) Comments: PATIENT NOT FASTINGPERFORMED BY: Pegg'd Vmcodg9570 [facility] [id number] Interpretation: SPRCS (Normal) Comments: EBV Interpretation Chart [...] 1.0 Positive >1.0 :28 URINALYSIS, W/ MICRO (62532) Comments: PATIENT NOT FASTINGPERFORMED BY: [employer] Htvulx5516 [facility] [id number] Microscopic Examination See below: (Normal) Microscopic Examination MICRON (Normal) Comments: Microscopic follows if indicated. Nitrite, Urine Negative (Normal) Urobilinogen,Semi-Qn 0.2 mg/dL (Normal) Range: 0.0-1.9 Bilirubin Negative (Normal) Occult Blood Negative (Normal) Ketones Negative (Normal) Glucose Negative (Normal) Protein Negative (Normal) WBC Esterase Negative (Normal) Appearance Cloudy (Abnormal) Urine-Color Yellow (Normal) pH 6.0 (Normal) Range: 5.0-7.5 Specific [place] 1.030 (Normal) Range: 1.005-1.030 :28 TSH (47871) Comments: PATIENT NOT FASTINGPERFORMED BY: Pegg'd Ntogfd4654 [facility] [id number] TSH 1.890 {uIU/mL} (Normal) Range: 0.450-4.500 :28 CBC WITH MANUAL DIFF Comments: PATIENT NOT FASTINGPERFORMED BY: Pegg'dRehabilitation Hospital of South JerseyOtumdp0892 [facility] [id number] Information: ADD [id number] AND DRAW FEE 55 3681 PLEASE FAX RESULTS TO (80696) Immature Grans (Abs) 0.0 {x10E3/uL} (Normal) Range: [...] 3.77-5.28 WBC 6.2 {x10E3/uL} (Normal) Range: 4.0-10.5 24-Zae-52092:28 METABOLIC PANEL, COMPREHENSIVE Comments: PATIENT NOT FASTINGPERFORMED BY: LabCoRehabilitation Hospital of South JerseyGoqfkm6385 [facility] [id number] (90249) ALT (SGPT) 31 [iU]/L (Normal) Range: 0-32 [...] 2 weeks Indication: Constipation Planned Observations CALCIFEDIOL (89748)Indication: Vitamin D deficiency On: 11-Oiw-30644:24 Request HEPATIC FUNCTION PANEL (18630)Indication: Elevated liver enzymes On: 39-Rgl-647758:17 Request Sputum Culture (65587)Indication: Cough On: 44-Ufw-377211:07 Request Rapid Flu (99001 x 2)Indication: Fever On: 54-Wra-486715:06 Request TEST - SERUM QUANTITATIVE (HCG) (92097)Indication: Other specified conditions associated with female genital organs and menstrual cycle On: 19-Qar-173032:13 Request Comments: stat D-Dimer (72802)Indication: Pneumonia On: 97-Ibn-494425:58 Request Comments: stat CBC WITH MANUAL DIFF (50212)Indication: Pneumonia On: 52-Qgu-148197:58 Request MONOSPOT TEST (92242)Indication: Abdominal pain, acute, right upper quadrant On: 7-Wpz-190754:10 Request Planned Procedures HEPATIC ULTRASOUND (55557)By: Diego On: 11-Sep-2018 Intent Vivien ZHONG Diego ZHONG Vivien Mcneill Echo CompleteBy: Diego ZHONG Vivien Mcneill On: 10-Sep-2018 Intent Diego ZHONG Vivien Mcneill ULTRASOUND OF LIVER (12638)By: Diego On: 10-Sep-2018 Intent FARHEENVivien Diego ZHONG Vivien Mcneill ELECTROCARDIOGRAM, COMPLETE (ECG) On: 10-Sep-2018 Intent (27731)By: Diego ZHONG ThereseCharito Cortez Comments: Left atrial enlargement, ST elevateion repolarization, neg precordial T waves probably normal, will echo Vivien ZHONG Aerosol Treatment (82756)By: Reji On: 04-Jan-2016 Intent Klaudia OLIVEIRA Overnight Pulse OX (78358)By: Rafi On: 14-May-2014 Intent DO Ivelisse A Aerosol Treatment (90877)By: Diego On: 25-Nov-2013 Intent PSYCHOLOGY TECHNICIANVivien Diego ZHONGVivien Eprescribed prescriptions (G8553)By: On: 09-Sep-2013 Intent Thelma Alvarez Spirometry (16530)By: Rafi DELUNA, On: 03-Jun-2013 Intent Ivelisse A Comments: good effort and curve mild obst Pulse Oximetry (98937)By: Rafi DO, On: 03-Jun-2013 Intent Ivelisse A Comments: 99 Ultrasound - PelvisBy: Rafi DO, On: 03-Jun-2013 Intent Ivelisse A Radiology - Chest- PA and LatBy: On: 03-Jun-2013 Intent Fast DO, Ivelisse A Echo CompleteBy: Fast DO, Ivelisse A On: 16-Apr-2013 Intent EKG (55770)By: Rafi DO Ivelisse A On: 16-Apr-2013 Intent Comments: ekg- [...] Fatigue : Patient Instructions Indication: Fatigue Encounters Lab Order On: 11-Sep-2018 16:15 Encounter Diagnosis: Elevated liver enzymes End: 11-Sep-2018 16:19 [facility] Office Visit On: 10-Sep-2018 7:57 Encounter Reason: [...] 2 children 2 and 5 year old childbinta n- and works early shift retail- sleeps [...] Abnormal EKG(794.31) [facility] Yoel Velazco; a guarantor
== END ==
PROVIDERS: Family Provider Nurse Practitioner; PCP Internal Medicine; Referring Provider Internal Medicine; Visit Provider Nurse Practitioner
DX: R94.5 Abnormal results of liver function studies (principal); R94.31 Abnormal electrocardiogram [ECG] [EKG]
CPT/HCPCS: 76705; 93306

== ENCOUNTER → 2018-11-26 11:32 | Outpatient (CLI) | payer OTHER, SELFPAY ==
[2018-11-26 14:17] LABS: Internal QC Validated? YES +Cl - CLEAR BKGD; Pregnancy, Urine Negative Negative
== END ==
PROVIDERS: Family Provider Internal Medicine; PCP Internal Medicine; Referring Provider Physician Assistant; Visit Provider Physician Assistant
DX: L70.0 Acne vulgaris (principal); Z79.899 Other long term (current) drug therapy
CPT/HCPCS: 81025

== ENCOUNTER → 2018-12-31 11:38 | Outpatient (CLI) | payer OTHER, SELFPAY ==
[2018-12-31 13:59] LABS: Internal QC Validated? YES +Cl - CLEAR BKGD; Pregnancy, Urine Negative Negative
== END ==
PROVIDERS: Family Provider Internal Medicine; PCP Internal Medicine; Referring Provider Physician Assistant; Visit Provider Physician Assistant
DX: L70.0 Acne vulgaris (principal)
CPT/HCPCS: 81025

== ENCOUNTER → 2019-02-04 | Outpatient (CLI) | payer OTHER, SELFPAY ==
[2019-02-04 14:21] LABS: Internal QC Validated? YES +Cl - CLEAR BKGD; Pregnancy, Urine Negative Negative
== END | disposition home or self-care (01) ==
LOC: MTLAB 11:38
PROVIDERS: Family Provider Internal Medicine; PCP Internal Medicine; Referring Provider Physician Assistant; Visit Provider Physician Assistant
DX: L70.0 Acne vulgaris (principal)
CPT/HCPCS: 81025

== ENCOUNTER → 2019-02-27 | Outpatient (CLI) | payer OTHER, SELFPAY ==
[2019-02-27 09:51] LABS: Absolute Lymphocyte Count 1.72 X10^3/ul (0.83-4.51); Absolute Neutrophil Count 2.4 X10^3/uL (2.0-7.7); Basophil# 0.02 X10^3/uL; Basophil% 0.4 % (0-1); Eosinophil# 0.05 X10^3/uL; Eosinophils% 1.1 % (0-5); Hematocrit 41.5 % (37-47); Hemoglobin 14.2 g/dl (12.0-15.0); Lymphocyte # 1.72 X10^3/ul (4.0); Lymphocyte % 38.1 % (19-41); Mean Corp Hgb Conc 34.2 g/gl (32-36); Mean Corpuscular Hgb 31.7 pg (27.0-32.0); Mean Corpuscular Volume 92.6 fL (81-99); Mean Platelet Vol. 10.6 fl (6.2-12.0); Monocyte# 0.32 X10^3/uL; Monocyte% 7.1 % (0-10); Neutrophil % 53.3 % (47-70); POSITIVE COUNT NO; POSITIVE DIFFERENTIAL NO; POSITIVE MORPHOLOGY NO; Platelet Count 195 K/mm3 (150-450); RBC Distribution Width CV 12.2 % (11.6-14.6); RBC Distribution Width SD 41.3 fl (35.1-43.9); Red Blood Count 4.48 M/mm3 (4.2-5.4); White Blood Count 4.5 K/mm3 (4.4-11.0)
[2019-02-27 10:29] LABS: AST(SGOT) 26 U/L (15-37); Alanine Aminotransfer ALT/SGPT 23 U/L (13-56); Albumin, Serum 3.7 g/dL (3.2-5.0); Alkaline Phosphatase 50 U/L (45-117); Bilirubin, Direct 0.11 mg/dL (0.00-0.30); Cholesterol 160 mg/dL (200); Globulin 3.5 g/dL (2.2-4.2); High Density Lipoprotein 63 mg/dL; Protein, Total 7.2 g/dL (6.4-8.2); Triglycerides 87 mg/dL; Very Low Density Lipoprotein 17 mg/dL (5-40)
== END | disposition home or self-care (01) ==
LOC: LAB.FUTURE 09:12
PROVIDERS: Family Provider Internal Medicine; PCP Internal Medicine; Referring Provider Physician Assistant; Visit Provider Physician Assistant
DX: L70.0 Acne vulgaris (principal); Z79.899 Other long term (current) drug therapy
CPT/HCPCS: 36415; 80061; 80076; 85025

== ENCOUNTER → 2019-03-28 | Outpatient (CLI) | payer OTHER, SELFPAY ==
[2019-03-28 10:06] LABS: Internal QC Validated? YES +Cl - CLEAR BKGD; Pregnancy, Urine Negative Negative
== END | disposition home or self-care (01) ==
LOC: MTLAB 09:14
PROVIDERS: Family Provider Internal Medicine; PCP Internal Medicine; Referring Provider Physician Assistant Medical; Visit Provider Physician Assistant Medical
DX: L70.0 Acne vulgaris (principal)
CPT/HCPCS: 81025

== ENCOUNTER → 2019-05-02 | Outpatient (CLI) | payer OTHER, SELFPAY ==
[2019-05-02 14:25] LABS: Internal QC Validated? YES +Cl - CLEAR BKGD; Pregnancy, Urine Negative Negative
== END | disposition home or self-care (01) ==
LOC: MTLAB 11:29
PROVIDERS: Family Provider Internal Medicine; PCP Internal Medicine; Referring Provider Physician Assistant Medical; Visit Provider Physician Assistant Medical
DX: L70.0 Acne vulgaris (principal)
CPT/HCPCS: 81025

== ENCOUNTER → 2019-06-06 | Outpatient (CLI) | payer OTHER, SELFPAY ==
[2019-06-06 10:03] LABS: Internal QC Validated? YES +Cl - CLEAR BKGD; Pregnancy, Urine Negative Negative
== END | disposition home or self-care (01) ==
LOC: MTLAB 08:09
PROVIDERS: Family Provider Internal Medicine; PCP Internal Medicine; Referring Provider Physician Assistant Medical; Visit Provider Physician Assistant Medical
DX: L70.0 Acne vulgaris (principal); Z79.899 Other long term (current) drug therapy
CPT/HCPCS: 81025

== ENCOUNTER → 2019-07-11 | Outpatient (CLI) | payer OTHER, SELFPAY ==
[2019-07-11 12:27] LABS: Internal QC Validated? YES +Cl - CLEAR BKGD
[2019-07-11 12:28] LABS: Pregnancy, Urine Negative Negative
== END | disposition home or self-care (01) ==
LOC: MTLAB 11:16
PROVIDERS: Family Provider Internal Medicine; PCP Internal Medicine; Referring Provider Physician Assistant Medical; Visit Provider Physician Assistant Medical
DX: L70.0 Acne vulgaris (principal); L71.0 Perioral dermatitis; L71.8 Other rosacea; Z79.899 Other long term (current) drug therapy
CPT/HCPCS: 81025

== ENCOUNTER → 2019-08-15 | Outpatient (CLI) | payer OTHER, SELFPAY ==
[2019-08-15 14:00] LABS: Internal QC Validated? YES +Cl - CLEAR BKGD; Pregnancy, Urine Negative Negative
== END | disposition home or self-care (01) ==
LOC: MTLAB 11:10
PROVIDERS: Family Provider Internal Medicine; PCP Internal Medicine; Referring Provider Physician Assistant Medical; Visit Provider Physician Assistant Medical
DX: L70.0 Acne vulgaris (principal); L71.0 Perioral dermatitis; L71.8 Other rosacea; Z79.899 Other long term (current) drug therapy
CPT/HCPCS: 81025

== ENCOUNTER → 2019-09-26 11:10 | Outpatient (CLI) | payer OTHER, SELFPAY ==
[2019-09-26 12:30] LABS: Internal QC Validated? YES +Cl - CLEAR BKGD; Pregnancy, Urine Negative Negative
== END ==
PROVIDERS: Family Provider Internal Medicine; PCP Internal Medicine; Referring Provider Physician Assistant Medical; Visit Provider Physician Assistant Medical
DX: L70.0 Acne vulgaris (principal); L71.0 Perioral dermatitis; L71.8 Other rosacea; Z79.899 Other long term (current) drug therapy
CPT/HCPCS: 81025

== ENCOUNTER → 2021-07-07 15:50 | Outpatient (CLI) | payer OTHER, SELFPAY ==
--- NOTE | 2021-07-07 15:54 | RAD_ITS ---
STUDY: X-RAY CHEST REASON FOR EXAM: Female, 41 years old. CHEST PRESSURE TECHNIQUE: PA and lateral COMPARISON: 06/03/2013 FINDINGS: Lungs are hyperinflated but clear.. There is no demonstrated pleural abnormality. Normal size heart. Normal mediastinum and cely. Normal visualized pulmonary arteries. Normal visualized aortic arch and descending thoracic aorta. Bilateral breast prostheses are present Dorsal spine demonstrates mild scoliosis. Normal visualized ribs, clavicles, and shoulders. There is no demonstrated abnormality of the visualized soft tissue structures of the upper abdomen. No significant change since prior exam RAD/Chest PA and Lateral IMPRESSION: Mild hyperinflation. No acute cardiopulmonary pathology. Electronically Signed: Wild Brito MD at 16:10 EDT , Service support ,
== END ==
PROVIDERS: PCP Internal Medicine; Referring Provider Nurse Practitioner; Visit Provider Nurse Practitioner
DX: R07.89 Other chest pain (principal)
CPT/HCPCS: 71046

== ENCOUNTER → 2021-07-22 12:50 | Outpatient (CLI) | payer OTHER, SELFPAY ==
--- NOTE | 2021-07-22 13:08 | CT_ITS ---
STUDY: CTA CHEST REASON FOR EXAM: Female, 41 years old. SOB RADIATION DOSAGE (If Supplied By Facility): CTDIvol = ( 13.99 ) mGy, DLP = ( 171.29 ) mGycm TECHNIQUE: The examination was performed with the intravenous administration of IV 100ML ISOVUE 370. Post-processing of the angiographic images was performed, with multiplanar reformation and 3D reconstruction. Individualized dose optimization techniques were used for this CT. COMPARISON: 07/07/2021. FINDINGS: A 1.2 x 1 x 0.5 cm filling defect visualized within a right lower lobe posterior/lateral pulmonary artery segmental branch best visualized on coronal CT series 601 image 175 and sagittal series 602 image 98 seen measuring 1.2 x 0.5 cm. A 0.9 x 0.6 cm filling defect is visualized within a segmental branch of the anterior segment of the right lower lobe best visualized on axial series 2 image 111 and sagittal series 602 image 87. A 0.9 x 0.5 cm defect visualized in a segmental posterior branch of the left upper lobe pulmonary artery consistent with an embolus visualized on sagittal series 602 image 195 and axial series 2 image 190. No evidence of central pulmonary embolism is seen. A focal area of groundglass lung opacification is visualized in the medial aspect of the superior segment of the lower lobe of the left lung best visualized on axial series 2 image 174 and on sagittal series 602 image 178. Mild prominence of the bronchovascular and interstitial lung markings is visualized with thickening of the bronchial rousseau but no evidence of other areas of the consolidation, no evidence of parenchymal lung masses is seen. No evidence of pneumothorax or pleural effusion. Normal thoracic aorta and visualized great vessels. There is no evidence of aneurysmal dilatation or thoracic aortic dissection. Normal heart and pericardium. Normal mediastinum. Normal hilar regions. Normal chest wall structures. Bilateral breast implants seen. Normal osseous structures. Unremarkable visualized upper abdomen, there is a 0.8 cm nonobstructive calcification visualized in the midpole of the left kidney, no evidence of hydronephrosis or hydroureter is seen.. CT/CTA Chest W/WO Contrast IMPRESSION: Filling defects visualized within 3 peripheral pulmonary artery segmental branches consistent with a peripheral emboli, no evidence of central pulmonary embolism. Focal area of groundglass opacification visualized in the medial aspect of the superior segment of the left lower lobe, this would correlate with the patient''s history of Covid 19 disease. Normal CTA chest examination, without a demonstrated pulmonary embolism or arterial dissection. Electronically Signed: Demond Sears MD at 14:35 EDT Tel , Service support ,
== END ==
PROVIDERS: PCP Internal Medicine; Referring Provider Internal Medicine; Visit Provider Internal Medicine
DX: R06.02 Shortness of breath (principal)
CPT/HCPCS: 71275; Q9967; A4216

== ENCOUNTER 2021-07-22 14:10 | Emergency (ER) | payer OTHER, SELFPAY ==
[2021-07-22 14:11] VITALS: BP 120/81; PULSE 56; RESP 18; TEMP 36.6; O2SAT 100; BMI 20.2
--- NOTE | 2021-07-22 14:26 | EKG12_ITS ---
Test Reason : SOB Blood Pressure : / mmHG Vent. Rate : 059 BPM Atrial Rate : 059 BPM P-R Int : 106 ms QRS Dur : 084 ms QT Int : 432 ms P-R-T Axes : 027 062 064 degrees QTc Int : 427 ms Sinus bradycardia with short AL Otherwise normal ECG Confirmed by BRIAN JOHNSON, RICHIE ([id number]), communications editor MYKEL SALINAS ([id number]) on 07/26/2021 12:18:16 PM Referred By: SUSHANT Confirmed By:VIVIANA TORRES MD
--- NOTE | 2021-07-22 14:26 | VDLE_ITS ---
Reason For Study: Pain RIGHT LEFT GSV is normal. CFV is compressible, spontaneous, phasic, CFV is compressible, spontaneous, phasic, competent, and demonstrates normal competent and demonstrates normal augmentation. augmentation. FV is compressible, spontaneous, phasic, competent and demonstrates normal augmentation. POP V is compressible, spontaneous, phasic, competent and demonstrates normal augmentation. T/P Trunk is compressible. PTV is compressible. RT PerV is compressible. Acute deep vein thrombosis is noted in the right soleus vein. Procedure This is a venous duplex using B-mode, color flow and spectral Doppler. Exam performed portable in ED. A preliminary report was called and/or faxed to [facility]. VL/Venous Duplex US, Unilateral Interpretation Summary Acute deep venous thrombosis right soleus vein Patent, compressible right great saphenous vein Normal flow patterns left common femoral vein Ordering Physician: Usman Obrien Referring Physician: Martha Nieves M.D. Performed By: Jovana Blanco RVT
--- NOTE | 2021-07-22 14:28 | ED.VIS.DYS ---
HPI History of Present Illness Chief Complaint: Shortness of Breath Narrative Narrative: Patient is a 41-year-old female who was recently diagnosed and has recovered from Covid. She states that she has noticed pain in her bilateral feet when she wakes up in the morning but after walking on them for 10 to 15 minutes states they are better. She states she has since noticed pain in her right calf with no known injury. She denies any surgery travel hormone use or history of DVT/PE. She states she has felt short of breath with mild exertion following her Covid diagnosis and there was concern this could be due to a blood clot and therefore she was sent to the hospital for evaluation. PFSH PFSH Home Medications albuterol sulfate 2 puff INHALATION PRN PRN 07/22/21 [History Last Taken Unknown] rivaroxaban [Xarelto] 15 mg PO BID #42 tab 07/22/21 [Rx Last Taken Unknown] Allergy/AdvReac Type Severity Reaction Status Date / Time No Known Allergies Allergy Verified 07/22/21 14:13 Social History Smoking Status: Never smoker ROS [facility] ED Constitutional Constitutional ED: Denies chills or fever(s) ENT ENT ED: Denies sore throat Cardiovascular Cardiovascular: Denies chest pain Respiratory/Chest Respiratory/Chest: Reports dyspnea; Denies cough Gastrointestinal Gastrointestinal: Denies abdominal pain, diarrhea, nausea or vomiting Genitourinary Genitourinary ED: Denies dysuria Musculoskeletal Musculoskeletal: Reports other Details: Positive right calf pain ; Denies myalgias Integumentary Denies rash Neurologic Neurologic: Denies headache(s) Hematologic/Lymphatic Hematologic/Lymphatic: Denies easy bleeding or easy bruising EXAM Physical Exam Const Vital Signs: 07/22/21 14:11 Temperature 97.8 F Temperature Source Temporal Pulse Rate 56 L Respiratory Rate 18 Blood Pressure 120/81 H Blood Pressure Mean 94 Pulse Ox 100 Oxygen Delivery Method Room Air Positive well nourished and well developed General Appearance ED: well developed HEENT Reports moist mucous membranes HEENT Narrative: No tongue or lip swelling atraumatic Eyes PERRL and EOMs intact bilaterally Neck supple Resp normal respiratory effort and clear to auscultation bilaterally Cardio regular rate and regular rhythm GI non-tender and non-distended Auscultation: normoactive bowel sounds Palpation: soft Extremity Extremity Narrative: Patient does have pain with palpation to the lower aspect of the right calf without asymmetric edema pitting edema. No changes to suggest injury to the Achilles tendon. No overlying soft tissue changes to suggest trauma or infection. Neuro oriented x3 and CN's II-XII intact bilaterally Sensorium / Orientation: alert Psych mental status grossly normal Skin no rashes or lesions noted and skin turgor normal Rashes: no rashes MDM MDM MDM Narrative Medical decision making narrative: Patient presented to the ER with stable vitals and overall normal physical exam. Her only risk factor for DVT/PE is her recent Covid diagnosis. She had an outpatient CTA performed just prior to arrival so there is no need for further imaging other than a venous duplex. Blood work revealed no acute findings and EKG was sinus rhythm. Venous duplex did show an acute clot in her soleus vein. CTA also revealed 3 small peripheral PEs without any type of heart strain. The patient was ambulated in her room air pulse ox went from 94 to 96%. Therefore at this time she does have a DVT and PE but there is no signs of heart strain or need for supplemental oxygen's I do not feel she needs admitted for heparin or Lovenox but can be placed on oral Xarelto and discharged home. Lab Data Attestation: I reviewed the patient's lab results. Labs: Laboratory Results - last 24 hr 07/22/21 07/22/21 07/22/21 14:36 14:36 14:36 WBC 8.7 RBC 4.16 L Hgb 13.0 Hct 38.3 MCV 92.1 MCH 31.3 MCHC 33.9 RDW Std Deviation 38.9 RDW Coeff of Sherron 11.5 L Plt Count 228 MPV 10.5 Immature Gran % (Auto) 0.300 Neut % (Auto) 65.5 Lymph % (Auto) 26.5 [place] % (Auto) 6.6 Eos % (Auto) 0.6 Baso % (Auto) 0.5 Absolute Neuts (auto) 5.7 Absolute Lymphs (auto) 2.29 Nucleated RBC % 0 PT 12.3 INR 1.0 APTT 25.2 Sodium 138 Potassium 3.8 Chloride 104 Carbon Dioxide 29.0 Anion Gap 5 BUN 18 Creatinine 0.76 Estim Creat Clear Calc 104.42 Est GFR (MDRD) Af Amer 107 Est GFR (MDRD) Non-Af 89 BUN/Creatinine Ratio 23.6 H Glucose 86 Calcium 8.8 Magnesium 2.4 Troponin I High Sens 5 Discharge Plan Triage Chief Complaint: Shortness of Breath ED Provider: Usman Obrien Dx/Rx/DC Orders Clinical Impression: DVT (deep venous thrombosis), Pulmonary embolism Instructions: DVT Complications, Pulmonary Embolism Prescriptions: New Xarelto 15 mg tablet 15 mg PO BID Qty: 42 RF: 0 No Action albuterol sulfate 90 mcg/actuation HFA aerosol inhaler 2 puff INHALATION PRN PRN (Reason: SOB) RF: 0 Primary Care Provider: Ivelisse Mckee Referrals: Ivelisse Mckee, [Primary Care Provider] - Disposition Disposition: Home, Self Care
[2021-07-22 14:50] LABS: Absolute Lymphocyte Count 2.29 X10^3/uL (0.83-4.51); Absolute Neutrophil Count 5.7 X10^3/uL (2.0-7.7); Basophil# 0.04 X10^3/uL; Basophil% 0.5 % (0-1); Eosinophil# 0.05 X10^3/uL; Eosinophils% 0.6 % (0-5); Hematocrit 38.3 % (37-47); Lymphocyte # 2.29 X10^3/ul (0.83-4.51); Lymphocyte % 26.5 % (19-41); Mean Corp Hgb Conc 33.9 g/dL (32-36); Mean Corpuscular Hgb 31.3 pg (27.0-32.0); Mean Corpuscular Volume 92.1 fL (81-99); Mean Platelet Vol. 10.5 fl (6.2-12.0); Monocyte# 0.57 X10^3/uL; Monocyte% 6.6 % (0-10); NRBC Flagged by Analyzer 0 % (0-5); Neutrophil # 5.67 X10^3/uL (2.7-7.7); Neutrophil % 65.5 % (47-70); Platelet Count 228 K/mm3 (150-450); RBC Distribution Width CV 11.5 % (11.6-14.6); RBC Distribution Width SD 38.9 fl (35.1-43.9); Red Blood Count 4.16 M/mm3 (4.2-5.4); White Blood Count 8.7 K/mm3 (4.4-11.0)
[2021-07-22 14:55] LABS: Prothrombin Time (Protime)PT. 12.3 SECONDS (11.7-14.9)
[2021-07-22 14:56] LABS: Partial Thromboplast Time 25.2 Seconds (24.1-36.2)
[2021-07-22 15:06] LABS: Anion Gap 5 (5-15); BUN 18 mg/dL (7-18); BUN/Creat Ratio 23.6 RATIO (10-20); Calcium,Total 8.8 mg/dL (8.5-10.1); Chloride 104 mmol/L (98-107); Creatinine, Serum 0.76 mg/dL (0.55-1.02); EST Glomerular Filtration Rate 89 mL/min (>60); Est Glom Filt Rate - Afr Amer 107 mL/min (>60); Estimated Creatinine Clearance 104.42 ml/min; Glucose 86 mg/dL (74-106); Magnesium 2.4 mg/dL (1.6-2.6); Potassium 3.8 mmol/L (3.5-5.1); Sodium Level 138 mmol/L (136-145); Troponin-I HS 5 pg/mL (3.0-54.0)
[2021-07-22 15:55] VITALS: O2SAT 94
[2021-07-22 16:13] VITALS: BP 121/65; PULSE 67; RESP 15; O2SAT 96
== END 2021-07-22 16:13 | disposition home or self-care (01) ==
PROVIDERS: Emergency Provider Emergency Medicine; PCP Internal Medicine
DX: I82.409 Acute embolism and thrombosis of unspecified deep veins of unspecified lower extremity (principal); I26.99 Other pulmonary embolism without acute cor pulmonale
CPT/HCPCS: 80048; 83735; 84484; 85025; 85610; 85730; 93005; 93971; 99283; A4216

== ENCOUNTER → 2021-08-03 09:21 | Outpatient (CLI) | payer OTHER, SELFPAY ==
[2021-08-03 12:16] LABS: Absolute Lymphocyte Count 1.29 X10^3/uL (0.83-4.51); Absolute Neutrophil Count 2.7 X10^3/uL (2.0-7.7); Basophil# 0.04 X10^3/uL; Basophil% 0.9 % (0-1); Eosinophil# 0.03 X10^3/uL; Eosinophils% 0.7 % (0-5); Hematocrit 41.1 % (37-47); Hemoglobin 13.8 g/dL (12.0-15.0); Lymphocyte # 1.29 X10^3/ul (0.83-4.51); Lymphocyte % 28.9 % (19-41); Mean Corp Hgb Conc 33.6 g/dL (32-36); Mean Corpuscular Hgb 31.5 pg (27.0-32.0); Mean Corpuscular Volume 93.8 fL (81-99); Mean Platelet Vol. 10.7 fl (6.2-12.0); Monocyte# 0.35 X10^3/uL; Monocyte% 7.8 % (0-10); NRBC Flagged by Analyzer 0 % (0-5); Neutrophil # 2.74 X10^3/uL (2.7-7.7); Neutrophil % 61.3 % (47-70); Platelet Count 260 K/mm3 (150-450); RBC Distribution Width CV 11.8 % (11.6-14.6); RBC Distribution Width SD 40.8 fl (35.1-43.9); Red Blood Count 4.38 M/mm3 (4.2-5.4); White Blood Count 4.5 K/mm3 (4.4-11.0)
[2021-08-03 13:28] LABS: ALB/GLOB Ratio 0.8 RATIO (0.9-2.4); AST(SGOT) 20 U/L (15-37); Alanine Aminotransfer ALT/SGPT 21 U/L (13-56); Albumin, Serum 3.3 g/dL (3.2-5.0); Alkaline Phosphatase 52 U/L (45-117); Anion Gap 8 (5-15); BUN 18 mg/dL (7-18); BUN/Creat Ratio 23.2 RATIO (10-20); CPK Total, Creatine Kinase 103 U/L (26-192); Calcium,Total 9.1 mg/dL (8.5-10.1); Chloride 103 mmol/L (98-107); Creatinine, Serum 0.78 mg/dL (0.55-1.02); EST Glomerular Filtration Rate 87 mL/min (>60); Est Glom Filt Rate - Afr Amer 105 mL/min (>60); Globulin 3.9 g/dL (2.2-4.2); Glucose 82 mg/dL (74-106); Potassium 3.6 mmol/L (3.5-5.1); Protein, Total 7.2 g/dL (6.4-8.2); Sodium Level 138 mmol/L (136-145); Thyroid Stim Hormone (TSH) 1.11 uIU/mL (0.358-3.74); Troponin-I HS < 3 pg/mL (3.0-54.0)
[2021-08-04 13:22] LABS: Myoglobin, Serum < 21 ng/mL (25-58)
== END ==
PROVIDERS: PCP Internal Medicine; Referring Provider Nurse Practitioner; Visit Provider Nurse Practitioner
DX: R07.89 Other chest pain (principal)
CPT/HCPCS: 36415; 80053; 82550; 83874; 84443; 84484; 85025

== ENCOUNTER → 2021-08-06 13:51 | Outpatient (CLI) | payer OTHER, SELFPAY ==
--- NOTE | 2021-08-06 13:53 | ECHOD_ITS ---
Reason For Study: CHEST PRESSURE Procedure This was a 2D Doppler, Color Flow transthoracic echocardiogram. Exam performed in department. Left Ventricle Normal LV size. Left ventricular systolic function is normal. The estimated ejection fraction is 55 %. No regional wall motion abnormalities noted. Right Ventricle Normal RV size. Normal systolic function. Atria Normal left atrium. Normal right atrium. Mitral Valve Normal mitral valve. Tricuspid Valve Normal tricuspid valve. Aortic Valve Normal aortic valve. Trisinus/trileaflet aortic valve. Pulmonic Valve Normal pulmonic valve. Great Vessels Normal aortic root. The pulmonary artery is normal size. Normal inferior vena cava. Pericardium/Pleural No pericardial effusion. MMode/2D Measurements & Calculations LVIDd: 4.9 cm IVSd: 0.82 cm Ao root diam: 3.3 cm LVIDs: 3.3 cm LVPWd: 0.76 cm RVDd: 4.0 cm FS: 33.1 % LAV(MOD-bp): 48.7 ml LA A4 area: 17.9 cm2 LA dimension(2D): 3.1 cm LAV(MOD-bp) Indexed: 26.0 ml/m2 LAV(MOD-sp2): 39.4 ml LAV(MOD-sp4): 49.5 ml RA A4 area: 15.8 cm2 Time Measurements MV dec time: 0.21 sec Doppler Measurements & Calculations MV E max nicholas: 84.8 cm/sec Lat Peak E' Nicholas: 10.9 cm/sec Med Peak E' Nicholas: 11.9 cm/sec MV A max nicholas: 56.7 cm/sec E/E' lat: 7.8 E/E' med: 7.1 MV E/A: 1.5 Ao V2 max: 124.0 cm/sec LV V1 max: 108.3 cm/sec PA V2 max: 95.6 cm/sec Ao max P.2 mmHg LV V1 max P.7 mmHg TR max nicholas: 217.2 cm/sec TR max P.9 mmHg ECHO/Echo Complete Interpretation Summary Normal LV size. Left ventricular systolic function is normal. The estimated ejection fraction is 55 %. Structurally normal valves. Ordering Physician: Vivien Cortez Referring Physician: Vivien Cotrez Performed By: Sosa Lu RDCS, RVT
== END ==
PROVIDERS: PCP Internal Medicine; Referring Provider Nurse Practitioner; Visit Provider Nurse Practitioner
DX: R07.89 Other chest pain (principal)
CPT/HCPCS: 93306

== ENCOUNTER → 2021-08-18 09:47 | Outpatient (CLI) | payer OTHER, SELFPAY ==
[2021-08-18 12:28] LABS: Absolute Lymphocyte Count 1.81 X10^3/uL (0.83-4.51); Absolute Neutrophil Count 5.3 X10^3/uL (2.0-7.7); Basophil# 0.05 X10^3/uL; Basophil% 0.7 % (0-1); Eosinophil# 0.01 X10^3/uL; Eosinophils% 0.1 % (0-5); Hematocrit 43.7 % (37-47); Hemoglobin 14.7 g/dL (12.0-15.0); Lymphocyte # 1.81 X10^3/ul (0.83-4.51); Lymphocyte % 23.8 % (19-41); Mean Corp Hgb Conc 33.6 g/dL (32-36); Mean Corpuscular Hgb 31.9 pg (27.0-32.0); Mean Corpuscular Volume 94.8 fL (81-99); Mean Platelet Vol. 11.1 fl (6.2-12.0); Monocyte# 0.39 X10^3/uL; Monocyte% 5.1 % (0-10); NRBC Flagged by Analyzer 0 % (0-5); Neutrophil # 5.34 X10^3/uL (2.7-7.7); Platelet Count 241 K/mm3 (150-450); RBC Distribution Width CV 11.9 % (11.6-14.6); RBC Distribution Width SD 40.7 fl (35.1-43.9); Red Blood Count 4.61 M/mm3 (4.2-5.4); White Blood Count 7.6 K/mm3 (4.4-11.0)
[2021-08-18 12:30] LABS: Albumin, Serum 3.8 g/dL (3.2-5.0); BUN 24 mg/dL (7-18); BUN/Creat Ratio 29.4 RATIO (10-20); Calcium,Total 9.4 mg/dL (8.5-10.1); Chloride 105 mmol/L (98-107); Creatinine, Serum 0.82 mg/dL (0.55-1.02); EST Glomerular Filtration Rate 82 mL/min (>60); Est Glom Filt Rate - Afr Amer 99 mL/min (>60); Glucose 90 mg/dL (74-106); Phosphorus 3.1 mg/dL (2.5-4.9); Potassium 3.5 mmol/L (3.5-5.1); Sodium Level 138 mmol/L (136-145)
== END ==
PROVIDERS: PCP Internal Medicine; Referring Provider Nurse Practitioner; Visit Provider Nurse Practitioner
DX: Z79.01 Long term (current) use of anticoagulants (principal)
CPT/HCPCS: 36415; 80069; 85025

== ENCOUNTER → 2023-10-11 | Outpatient (CLI) | payer MEDICAID, SELFPAY ==
--- NOTE | 2023-10-11 16:12 | VDLE_ITS ---
Reason For Study: Leftleg pain RIGHT LEFT CFV is compressible, spontaneous, phasic, GSV is normal. competent and demonstrates normal CFV is compressible, spontaneous, phasic, augmentation. competent, and demonstrates normal Procedure augmentation. This is a venous duplex using B-mode, color FV is compressible, spontaneous, phasic, flow and spectral Doppler. competent and demonstrates normal Exam performed in department. augmentation. A preliminary report was called and/or faxed POP V is compressible, spontaneous, phasic, to [facility] CAIN. competent and demonstrates normal augmentation. T/P Trunk is compressible. PTV is compressible. LT PerV is compressible. VL/Venous Duplex US, Unilateral Interpretation Summary Deep veins of the left lower extremity are patent and compressible segmentally. There is no evidence of left lower extremity deep vein thrombosis. The left great saphenous vein coby ears patent and compressible segmentally. Ordering Physician: Tasha Ibarra Referring Physician: Ivelisse Mckee D.O. Performed By: Jovana Blanco RVT
== END | disposition home or self-care (01) ==
PROVIDERS: PCP Internal Medicine; Referring Provider Nurse Practitioner Family; Visit Provider Nurse Practitioner Family
DX: M79.605 Pain in left leg (principal)
CPT/HCPCS: 93971